=== PATIENT | female | born 1950 | race Caucasian/White ===

== ENCOUNTER 2016-12-03 13:02 | Inpatient (IN) | payer MEDICARE ==
[2016-12-03] VITALS (7 sets, daily range): BP systolic 105–159; BP diastolic 49–81
[~2016-12-03] VITALS: Ht 157.5 cm; Wt 95.7 kg
[~2016-12-03 13:02] MED LIST: ACETAMINOPHEN &1 TA1 PO; ACTOS30 MG PO; ALDACTONE25 MG NG; ALPRAZOLAM0.25 MG PO; APAP PO; ASPIR 8181 MG PO; ATENOLOL50 MG PO; BRILINTA90 M1 PO; BUPROPION HCL75 MG PO; BUSPIRONE HCL15 MG PO; BUSPIRONE15 MG PO; BUTALB PO; CAF PO; CARVEDILOL 25MG25 MG PO; CITALOPRAM10 MG PO; CLOPIDOGREL75 M1 PO; COUMADIN5 M1 PO; DICLOFENAC 50MG50 MG OR; ENOXAPARIN100 MG/M1 SC; FIORICET 325 MG1 TAB; FLEXERIL10 MG PO; FUROSEMIDE 40MG40 M1 PO; GABAPENTIN300 MG PO; GLIPIZIDE 5MG TA5 MG; GLIPIZIDE10 MG PO; HUMULIN 70100 UNITS/ SC; HYDROCODONE/ACE1 TA5 PO; ISOSORBIDE MONO30 MG PO; LASIX 40MG. TAB40 MG PO; LEVAQUIN500 MG PO; LIPITOR80 MG PO; LISINOPRIL 10MG10 MG PO; LISINOPRIL 20MG20 MG PO; LISINOPRIL10 MG PO; LISINOPRIL40 MG PO; LORTAB 5/500 501 TAB PO; LORTAB 500 MG-11 TAB PO; LOVASTATIN20 MG PO; METFORMIN500 MG PO; MOBIC7.5 MG PO; NITROGLYCERIN0.4 MG SL; NORCO 325 MG-101 TAB PO; OMEPRAZOLE40 MG PO; PERCOCET 325 MG1 TA3 PO; PLAVIX75 M1 PO; SPIRONOLACTONE25 MG NG; SPIRONOLACTONE25 MG PO; VICODIN 5/500 T1 TAB PO; ZITHROMAX Z PA250 MG PO
--- OUTSIDE RECORDS SUMMARY | 2016-12-03 13:19 | External Medical Summary Rpt ---
Author Author , HAM CHEEK Address Unknown Phone [email or web address] Purpose Continuity of Care Document - 10-17-2016 through 2016 Problems Code Diagnosis DOS Provider Status E11.9 TYPE 2 DIABETES MELLITUS WITHOUT COMPLICATIO NS E87.5 HYPERKALEMI A I21.4 NON-ST ELEVATION (NSTEMI) MYOCARDIAL INFARCTION I25.10 ATHSCL HEART DISEASE OF [place] CORONARY ARTERY W/O ANG PCTRS I26.99 OTHER PULMONARY EMBOLISM WITHOUT ACUTE COR PULMONALE I50.9 HEART FAILURE, UNSPECIFIED J18.9 PNEUMONIA, UNSPECIFIED ORGANISM M19.90 UNSPECIFIED OSTEOARTHRI TIS, UNSPECIFIED SITE N28.9 DISORDER OF KIDNEY AND URETER, UNSPECIFIED N39.0 URINARY TRACT INFECTION, SITE NOT SPECIFIED R07.9 CHEST PAIN, UNSPECIFIED R73.9 HYPERGLYCEM IA, UNSPECIFIED R79.1 ABNORMAL COAGULATION PROFILE S02.2XXA FRACTURE OF NASAL BONES, INIT ENCNTR FOR CLOSED FRACTURE W19.XXXA UNSPECIFIED FALL, INITIAL ENCOUNTER Results Labs Lab Lab Date Result Refere Interp Status Commen Order Detail nces retati t Range on Drugs identified in Urine by Screen method (11-27-2016 10:19) Ampheta NEGATIV <1000 complet mine 017 E ed [Presen 10:19 ce] in Urine by Screen method 11-Hydr NEGATIV <50 complet oxy 017 E ed delta-9 10:19 tetrahy drocann abinol [Presen ce] in Unspeci fied specime n Gas panel in Arterial blood (10-17-2016 20:43) Arteria Y complet l 017 ed patency 20:43 Wrist artery --pre arteria l punctur e SOURCE R/R complet 017 ed 20:43 Urinalysis dipstick W Reflex Microscopic panel in Urine (10-17-2016 19:15) Bacteri 2+ O complet a 017 ed [Presen 19:15 ce] in Urine sedimen t by Light microsc opy Mucus 10-17-2 OCC OCC complet [Presen 017 ed ce] in 19:15 Urine sedimen t by Light microsc opy Epithel 10-17-2 20-50 0#/hp complet ial 017 f - ed cells.s 19:15 5#/hp quamous f [Presen ce] in Urine sedimen t by Microsc opy high power field Leukocy 10-17- 50-100 O complet maria esther 017 wbc/hpf ed [#/volu 19:15 me] in Urine Urinalysis dipstick W Reflex Microscopic panel in Urine (10-17-2016 19:15) Appeara 10-17- CLEAR CLEAR complet nce of 017 ed Urine 19:15 Bilirub 10-17-2 1+ NEG Abnorma complet in 017 l ed [Presen 19:15 ce] in Urine by Test strip Erythro 1+ NEG Abnorma complet cytes 017 l ed [Presen 19:15 ce] in Urine Color 10-17- YELLOW YELLOW complet of 017 ed Urine 19:15 Ketones 10-17-2 1+ NEG Abnorma complet 017 l ed [Presen 19:15 ce] in Urine by Automat ed test strip Mucus 10-17-2 1+ NEG Abnorma complet [Presen 017 l ed ce] in 19:15 Urine sedimen t by Light microsc opy Nitrite 10-17-2 POSITIV NEG Abnorma complet 017 E l ed [Presen 19:15 ce] in Urine by Test strip Urobili 10-17-2 0.2 NEG complet nogen 017 ed [Presen 19:15 ce] in Urine by Test strip Ketones [Presence] in Urine by Automated test strip (10-17-2016 19:15) Ketones -23-2 MODERAT NEGATIV complet 017 E(40mg/ E ed [Presen 19:15 dl) ce] in Urine by Automat ed test strip
--- OUTSIDE RECORDS SUMMARY | 2016-12-03 13:19 | External Medical Summary Rpt ---
Demographics Preferred Language [place] Marital Status Unknown Jainism Affiliation Unknown Race Unknown Ethnic Group Unknown Author Author HAM Address Unknown Phone Immunization No patient found.
--- OUTSIDE RECORDS SUMMARY | 2016-12-03 13:19 | External Medical Summary Rpt ---
Demographics Preferred Language Citizen Of [place] Marital Status Unknown Yazdanism Affiliation Unknown Race Unknown Ethnic Group Unknown Author Author HAM Address Unknown Phone Immunization No patient found.
--- OUTSIDE RECORDS SUMMARY | 2016-12-03 13:19 | External Medical Summary Rpt ---
Author Author , HAM CHEEK Address Unknown Phone [email or web address] Purpose Continuity of Care Document - 10-17-2016 through 2016 Problems Code Diagnosis DOS Provider Status E11.9 TYPE 2 DIABETES MELLITUS WITHOUT COMPLICATIO NS E87.5 HYPERKALEMI A I21.4 NON-ST ELEVATION (NSTEMI) MYOCARDIAL INFARCTION I25.10 ATHSCL HEART DISEASE OF [place] CORONARY ARTERY W/O ANG PCTRS I26.99 OTHER [...]
--- OUTSIDE RECORDS SUMMARY | 2016-12-03 13:20 | External Medical Summary Rpt ---
Author Author [facility], [employer] Organization [facility] [employer] Address Unknown Phone Unavailable Results Potassium [Moles/volume] in Serum or Plasma Observa Value Referen Units Interpr Notes Date tion ce etation Range Potassium 3.5 - 5.1 mmoL/L High No Nov 30 informati 2017 8:25 [Moles/vo on in AM lume] in source Serum or data Plasma Comprehensive metabolic 2000 panel in Serum or Plasma Observa Value Referen Units Interpr Notes Date tion ce etation Range Albumin/G 1.1 - 1.8 No Low No Nov 30 lobulin informati informati 2017 6:35 [Mass on in on in AM ratio] in source source Serum or data data Plasma Albumin 3.4 - 5.0 gm/dL Low No Nov 30 [Mass/vol informati 2017 6:35 ume] in on in AM Serum or source Plasma data Alkaline 46 - 116 U/L High No Nov 30 phosphata informati 2017 6:35 se on in AM [Enzymati source c data activity/ volume] in Serum or Plasma Bilirubin 0.2 - 1.0 mg/dL Normal No Nov 30 .total informati 2017 6:35 [Mass/vol on in AM ume] in source Serum or data Plasma Urea 7 - 18 mg/dL High No Nov 30 nitrogen informati 2017 6:35 [Mass/vol on in AM ume] in source Serum or data Plasma Calcium 8.5 - mg/dL Normal No Nov 30 [Mass/vol 10.1 informati 2017 6:35 ume] in on in AM Serum or source Plasma data Chloride 98 - 107 mmoL/L Low No Nov 30 [Moles/vo informati 2017 6:35 lume] in on in AM Serum or source Plasma data Carbon 21.0 - mmoL/L Normal No Nov 30 dioxide, 32.0 informati 2017 6:35 total on in AM [Moles/vo source lume] in data Serum or Plasma Creatinin 0.55 - mg/dL High No Nov 30 e 1.02 informati 2017 6:35 [Mass/vol on in AM ume] in source Serum or data Plasma Creatinin 50 - 200 ML/MIN Low No Nov 30 e renal informati 2016 6:35 clearance on in AM source predicted data by Cockcroft -Gault formula Estimated 59- ML/MIN Low REFERENCE Nov 30 RANGE: 2017 6:35 glomerula >60 AM r ML/MIN/1. filtratio 73 SQUARE n rate METERSIf (GF this patient is -A merican, then multiply theresult by 1.210. Globulin 1.3 - 3.2 gm/dL High No Nov 30 [Mass/vol informati 2017 6:35 ume] in on in AM Serum source data Glucose 74 - 106 mg/dL High Nov 30 [Mass/vol alert 2016 6:35 ume] in CRITICAL AM Serum or RESULTS Plasma RESU LTS CALLED TO: DORON 11/30/16 0658 Raghu Arora e Potassium 3.5 - 5.1 mmoL/L High No Nov 30 informati 2016 6:35 [Moles/vo on in AM lume] in source Serum or data Plasma Sodium 136 - 145 mmoL/L Low No Nov 30 [Moles/vo informati 2016 6:35 lume] in on in AM Serum or source Plasma data Aspartate 15 - 37 U/L Normal No Nov 30 informati 2016 6:35 aminotran on in AM sferase source [Enzymati data c activity/ volume] in Serum or Plasma Alanine 12 - 78 U/L Normal No Nov 30 aminotran informati 2016 6:35 sferase on in AM [Enzymati source c data activity/ volume] in Serum or Plasma Protein 6.4 - 8.2 gm/dL Normal No Nov 30 [Mass/vol informati 2016 6:35 ume] in on in AM Serum or source Plasma data INR in Blood by Coagulation assay Observa Value Referen Units Interpr Notes Date tion ce etation Range IS PATIENT ON ANTICOAGULANTS? Y LIST ANTICOAGULANTS: COUMADIN INR in 0.9 - 1.1 No High INDICATIO Nov 30 Blood by informati N 2017 6:00 Coagulati on in AM on assay source INR data RANGETHER APY FOR DVT, PE, ATRIAL FIB; 2.0 - 3.0PROPHY LAXIS FOR VTETHERAP Y FOR MECHANICA L HEART 2.5 - 3.5VALVE; PREVENTIO N OF SYSTEMICE MBOLISM SECONDARY TO AMI Prothromb 9.4 - SECONDS High No Nov 30 in time 11.8 2016 6:00 (PT) in on in AM Platelet source poor data plasma by Coagulati on assay Cardiac enzymes Observa Value Referen Units Interpr Notes Date tion ce etation Range Creatine 0 - 4.0 U/L Normal No Nov 30 kinase.MB informati 2016 6:00 /Creatine on in AM source kinase.to data alexia [Ratio] in Serum or Plasma Creatine 0.0 - 3.6 ng/mL Normal No Nov 30 kinase.MB informati 2016 6:00 on in AM [Mass/vol source ume] in data Serum or Plasma Creatine 26 - 192 U/L Normal No Nov 30 kinase 2016 6:00 [Enzymati on in AM c source activity/ data volume] in Serum or Plasma Troponin 0.00 - ng/mL Normal No Nov 30 I.cardiac 0.06 ati 2016 6:00 on in AM [Mass/vol source ume] in data Serum or Plasma Activated partial thrombplastin time (aPTT) in Platelet poor plasma by Coagulation assay Observa Value Referen Units Interpr Notes ti ce etation Range Activated 23.6 - SECONDS Normal No Nov 30 partial 34.0 2016 6:00 thrombpla on in AM stin time source (aPTT) data in Platelet poor plasma by Coagulati on assay CBC W Auto Differential panel in Blood Observa Value Referen Units Interpr Notes Date ti ce etation Range Basophils 0 - 0.2 K/MM3 Normal No Nov 302016 6:00 [#/volume on in AM ] in source Blood by data Automated count Basophils 0.1 - 2.0 % Normal No Nov 30 /100 informati 2016 6:00 leukocyte on in AM s in source Blood by data Automated count Eosinophi 0.0 - 0.4 K/mm3 Normal No Nov 30 ls ati 2016 6:00 [#/volume on in AM ] in source Blood by data Automated count Eosinophi 0.1 - % Normal No Nov 30 ls/100 12.0 informati 2016 6:00 leukocyte on in AM s in source Blood by data Automated count Granulocy 1.8 - 7.8 K/mm3 Normal No Nov 30 maria esther informati 2017 6:00 [#/volume on in AM ] in source Blood by data Automated count Granulocy 37.0 - % Normal No Nov 30 maria esther/100 80.0 informati 2016 6:00 leukocyte on in AM s in source Blood by data Automated count Hematocri 37.0 - % Normal No Nov 30 t [Volume 47.0 informati 2016 6:00 on in AM Fraction] source of Blood data Hemoglobi 12.2 - g/dL Low No Nov 30 n 16.2 informati 2017 6:00 [Mass/vol on in AM ume] in source Blood data Lymphocyt 0.7 - 4.5 K/mm3 Normal No Nov 30 es informati 2016 6:00 [#/volume on in AM ] in source Unspecifi data ed specimen by Automated count Lymphocyt 10 - 50.0 % Normal No Nov 30 es informati 2016 6:00 [#/volume on in AM ] in source Unspecifi data ed specimen by Automated count Erythrocy 27 - 31.2 pg Normal No Nov 30 te mean informati 2016 6:00 corpuscul on in AM ar source hemoglobi data n [Entitic mass] Erythrocy 31.8 - g/dl Low No Nov 30 te mean 35.4 informati 2016 6:00 corpuscul on in AM ar source hemoglobi data n concentra tion [Mass/vol ume] by Automated count Erythrocy 82.2 - fl High No Nov 30 te mean 97.8 informati 2016 6:00 corpuscul on in AM ar volume source [Entitic data volume] by Automated count Monocytes 0.1 - 1.0 K/mm3 Normal No Nov 30 informati 2017 6:00 [#/volume on in AM ] in source Blood by data Automated count Monocytes 1.7 - 9.3 % Normal No Nov 30 informati 2017 6:00 leukocyte on in AM s in source Blood by data Automated count Platelet 7.4 - fl Normal No Nov 30 mean 10.4 informati 2017 6:00 volume on in AM [Entitic source volume] data in Blood by Automated count Platelets 142 - 424 K/mm3 No No Nov 30 informati informati 2017 6:00 [#/volume on in on in AM ] in source source Blood data data Erythrocy 4.2 - 5.4 M/mm3 Low No Nov 30 maria esther informati 2016 6:00 [#/volume on in AM ] in source Amniotic data fluid Erythrocy 11.5 - % Normal No Nov 30 te 17.5 informati 2016 6:00 distribut on in AM ion width source [Entitic data volume] by Automated count Leukocyte 4.8 - K/MM3 Normal No Nov 30 s 10.8 informati 2016 6:00 [#/volume on in AM ] in source Blood data Opiates and Oxycodone(GC/MS),U Observa Value Referen Units Interpr Notes Date tion ce etation Range Oxycodo Negativ Cutoff= No No Test Nov 27 ne/Oxym e 100 informa informa include 2017 orph tion in tion in s 10:19 source source Oxycodo AM data data ne and Oxymorp honePer formed at: [facility] [id number] [place], [place] [id number]Lab Directo r: Johnny Mosquera MD, Phone: [phone] Opiates Negativ Cutoff= No No Opiate Nov 27 e 100 informa informa test 2017 tion in tion in include 10:19 source source s AM data data Codeine , Morphin e, Hydromo rphone, Hydroco done. Drugs identified in Urine by Screen method Observa Value Referen Units Interpr Notes Date tion ce etation Range Positive urine drug screen samples are stored for 7 days. Contact the Lab if confirmation of positives is needed. Ampheta NEGATIV <1000 ng/mL No No Nov 27 mine E informa informa 2016 [Presen tion in tion in 10:19 ce] in source source AM Urine data data by Screen method Barbitura <200 ng/mL No No Nov 27 maria esther informati informati 2016 [Mass/vol on in on in 10:19 AM ume] in source source Urine by data data Screen method Benzodiaz 200 ng/mL ng/mL No No Nov 27 epines informati informati 2016 [Mass/vol on in on in 10:19 AM ume] in source source Serum or data data Plasma by Screen method Cocaine <300 ng/g No No Nov 27 [Mass/vol informati informati 2016 ume] in on in on in 10:19 AM Unspecifi source source ed data data specimen Methadone <300 ng/mL No No Nov 27 informati informati 2016 [Mass/vol on in on in 10:19 AM ume] in source source Unspecifi data data ed specimen Opiates <300 ng/mL No No Nov 27 [Mass/vol informati informati 2016 ume] in on in on in 10:19 AM Unspecifi source source ed data data specimen Phencycli <25 ng/mL No No Nov 27 dine informati informati 2016 [Mass/vol on in on in 10:19 AM ume] in source source Unspecifi data data ed specimen 11-Hydr NEGATIV <50 ng/mL No No Nov 27 oxy E informa informa 2017 delta-9 tion in tion in 10:19 source source AM tetrahy data data drocann abinol [Presen ce] in Unspeci fied specime n INR in Blood by Coagulation assay Observa Value Referen Units Interpr Notes Date tion ce etation Range INR in 0.9 - 1.1 No High Results Nov 16 Blood by informati sent to: 2016 3:30 Coagulati on in [facility] on assay source Ekta HIGH 11/16/16 [id number] enship,Ji mmy Pharmacis t recommend ation for Warfarint herapy is: PATIENT INR 1.7 TODAY VIA FINGERSTI CK.RECOMM ENDED PATIENT INCREASE THE DOSE OF WARFARIN BY 2 MGWEEKLY TO 3 MG ON MON/FRI; 2 MG ON SUN/SUN/ ED/MAYCOL/SA T.WILL FOLLOW UP IN 2 WEEKS. *FOR DETAILED INFORMATI ON-PLEASE REVIEW PROGRESS NOTEI N THE ASSESSMEN TS AND ANTICOAGU LATION CLINIC SECTIONAN TICOAGULA TION CLINIC IN PCI/CLINI SONU REVIEWIND ICATION INR RANGETHER APY FOR DVT, PE, ATRIAL FIB; 2.0 - 3.0PROPHY LAXIS FOR VTETHERAP Y FOR MECHANICA L HEART 2.5 - 3.5VALVE; PREVENTIO N OF SYSTEMICE MBOLISM SECONDARY TO AMI INR in Blood by Coagulation assay Observa Value Referen Units Interpr Notes Date tion ce etation Range INR in 0.9 - 1.1 No High Results Nov 10 Blood by informati sent to: 2016 3:30 Coagulati on in [facility] PM on assay source Ekta HIGH 11/10/16 [id number] enship,Ji mmy Pharmacis t recommend ation for Warfarint herapy is: PATIENT INR 2.0 TODAY VIA FINGERSTI CK. PATIENTHA S HAD 2 DOSES OF WARFARIN 5 MG SINCE SUNDAY .RECOMMEN DED PATIENT STOP THE WARFARIN 5 MG DAILY AND STARTWARF DAVID 2 MG DAILY. INR IS THERAPEUT IC SO LOVENOX IS NOLONGER INDICATED . WILL FOLLOW UP ON SUNDAY. FOR DETAILED INFORMATI ON-PLEASE REVIEW PROGRESS NOTEI N THE ASSESSMEN TS AND ANTICOAGU LATION CLINIC SECTIONAN TICOAGULA TION CLINIC IN PCI/CLINI SONU REVIEWIND ICATION INR RANGETHER APY FOR DVT, PE, ATRIAL FIB; 2.0 - 3.0PROPHY LAXIS FOR VTETHERAP Y FOR MECHANICA L HEART 2.5 - 3.5VALVE; PREVENTIO N OF SYSTEMICE MBOLISM SECONDARY TO AMI Glucose [Mass/volume] in Capillary blood by Glucometer Observa Value Referen Units Interpr Notes Date tion ce etation Range Glucose 70 - 110 mg/dl High No Oct 15 [Mass/vol informati 2017 ume] in on in 12:02 PM Capillary source blood by data Glucomete r Glucose [Mass/volume] in Capillary blood by Glucometer Observa Value Referen Units Interpr Notes Date tion ce etation Range Glucose 70 - 110 mg/dl High No Oct 15 [Mass/vol informati 2017 6:19 ume] in on in AM Capillary source blood by data Glucomete r Glucose [Mass/volume] in Capillary blood by Glucometer Observa Value Referen Units Interpr Notes Date tion ce etation Range Glucose 70 - 110 mg/dl High No Oct 14 [Mass/vol alert informati 2017 9:26 ume] in on in PM Capillary source blood by data Glucomete r Glucose [Mass/volume] in Capillary blood by Glucometer Observa Value Referen Units Interpr Notes Date tion ce etation Range Glucose 70 - 110 mg/dl High No Nov 08 [Mass/vol alert informati 2017 5:02 ume] in on in PM Capillary source blood by data Glucomete r Glucose [Mass/volume] in Capillary blood by Glucometer Observa Value Referen Units Interpr Notes Date tion ce etation Range Glucose 70 - 110 mg/dl High No Oct 14 [Mass/vol alert informati 2017 ume] in on in 11:54 AM Capillary source blood by data Glucomete r Glucose [Mass/volume] in Capillary blood by Glucometer Observa Value Referen Units Interpr Notes Date tion ce etation Range Glucose 70 - 110 mg/dl High No Oct 14 [Mass/vol alert informati 2017 6:36 ume] in on in AM Capillary source blood by data Glucomete r Basic metabolic panel in Blood Observa Value Referen Units Interpr Notes Date tion ce etation Range Urea 7 - 18 mg/dL High No Oct 14 nitrogen informati 2017 6:30 [Mass/vol on in AM ume] in source Serum or data Plasma Calcium 8.5 - mg/dL Normal No Oct 14 [Mass/vol 10.1 informati 2017 6:30 ume] in on in AM Serum or source Plasma data Chloride 98 - 107 mmoL/L Low No Oct 14 [Moles/vo informati 2016 6:30 lume] in on in AM Serum or source Plasma data Carbon 21.0 - mmoL/L Normal No Nov 08 dioxide, 32.0 informati 2017 6:30 total on in AM [Moles/vo source lume] in data Serum or Plasma Creatinin 0.55 - mg/dL High No Oct 14 e 1.02 informati 2017 6:30 [Mass/vol on in AM ume] in source Serum or data Plasma Creatinin 50 - 200 ML/MIN No No Oct 14 e renal informati informati 2017 6:30 clearance on in on in AM source source predicted data data by Cockcroft -Gault formula Estimated 59- ML/MIN Low REFERENCE Nov 08 RANGE: 2017 6:30 glomerula >60 AM r ML/MIN/1. filtratio 73 SQUARE n rate METERSIf (GF this patient is -A merican, then multiply theresult by 1.210. Glucose 74 - 106 mg/dL High No Oct 14 [Mass/vol informati 2017 6:30 ume] in on in AM Serum or source Plasma data Potassium 3.5 - 5.1 mmoL/L Normal No Oct 14 informati 2017 6:30 [Moles/vo on in AM lume] in source Serum or data Plasma Sodium 136 - 145 mmoL/L Low No Oct 14 [Moles/vo informati 2016 6:30 lume] in on in AM Serum or source Plasma data CBC W Auto Differential panel in Blood Observa Value Referen Units Interpr Notes Date tion ce etation Range Basophils 0 - 0.2 K/MM3 Normal No Oct 14 informati 2016 6:30 [#/volume on in AM ] in source Blood by data Automated count Basophils 0.1 - 2.0 % Normal No Oct 14 /100 informati 2017 6:30 leukocyte on in AM s in source Blood by data Automated count Eosinophi 0.0 - 0.4 K/mm3 Normal No Oct 14 ls informati 2017 6:30 [#/volume on in AM ] in source Blood by data Automated count Eosinophi 0.1 - % Normal No Oct 14 ls/100 12.0 informati 2017 6:30 leukocyte on in AM s in source Blood by data Automated count Granulocy 1.8 - 7.8 K/mm3 Normal No Oct 14 maria esther informati 2017 6:30 [#/volume on in AM ] in source Blood by data Automated count Granulocy 37.0 - % Normal No Oct 14 maria esther/100 80.0 informati 2016 6:30 leukocyte on in AM s in source Blood by data Automated count Hematocri 37.0 - % Low No Oct 14 t [Volume 47.0 informati 2017 6:30 on in AM Fraction] source of Blood data Hemoglobi 12.2 - g/dL Low No Nov 08 n 16.2 informati 2017 6:30 [Mass/vol on in AM ume] in source Blood data Lymphocyt 0.7 - 4.5 K/mm3 Normal No Oct 14 es informati 2017 6:30 [#/volume on in AM ] in source Unspecifi data ed specimen by Automated count Lymphocyt 10 - 50.0 % Normal No Oct 14 es informati 2017 6:30 [#/volume on in AM ] in source Unspecifi data ed specimen by Automated count Erythrocy 27 - 31.2 pg Normal No Oct 14 te mean informati 2017 6:30 corpuscul on in AM ar source hemoglobi data n [Entitic mass] Erythrocy 31.8 - g/dl Low No Oct 14 te mean 35.4 informati 2017 6:30 corpuscul on in AM ar source hemoglobi data n concentra tion [Mass/vol ume] by Automated count Erythrocy 82.2 - fl Normal No Oct 14 te mean 97.8 inform2016 6:30 corpuscul on in AM ar volume source [Entitic data volume] by Automated count Monocytes 0.1 - 1.0 K/mm3 Normal No Oct 14 inform2016 6:30 [#/volume on in AM ] in source Blood by data Automated count Monocytes 1.7 - 9.3 % High No Oct 14 /100 informati 2016 6:30 leukocyte on in AM s in source Blood by data Automated count Platelet 7.4 - fl Normal No Oct 14 mean 10.4 informati 2016 6:30 volume on in AM [Entitic source volume] data in Blood by Automated count Platelets 142 - 424 K/mm3 Normal No Oct 14 informati 2016 6:30 [#/volume on in AM ] in source Blood data Erythrocy 4.2 - 5.4 M/mm3 Low No Oct 14 maria esther informati 2016 6:30 [#/volume on in AM ] in source Amniotic data fluid Erythrocy 11.5 - % Normal No Oct 14 te 17.5 informati 2016 6:30 distribut on in AM ion width source [Entitic data volume] by Automated count Leukocyte 4.8 - K/MM3 Normal No Oct 14 s 10.8 informati 2016 6:30 [#/volume on in AM ] in source Blood data CBC W Auto Differential panel in Blood Observa Value Referen Units Interpr Notes Date tion ce etation Range Basophils 0 - 0.2 K/MM3 Normal No Oct 13 2016 [#/volume on in 12:25 PM ] in source Blood by data Automated count Basophils 0.1 - 2.0 % Normal No Nov 07 / inform2016 leukocyte on in 12:25 PM s in source Blood by data Automated count Eosinophi 0.0 - 0.4 K/mm3 Normal No Oct 13 ls inform2016 [#/volume on in 12:25 PM ] in source Blood by data Automated count Eosinophi 0.1 - % Normal No Nov 07 ls/100 12.0 inform2016 leukocyte on in 12:25 PM s in source Blood by data Automated count Granulocy 1.8 - 7.8 K/mm3 Normal No Nov 07 maria esther informati 2016 [#/volume on in 12:25 PM ] in source Blood by data Automated count Granulocy 37.0 - % Normal No Nov 07 maria esther/100 80.0 inform2016 leukocyte on in 12:25 PM s in source Blood by data Automated count Hematocri 37.0 - % Normal No Nov 07 t [Volume 47.0 informati 2016 on in 12:25 PM Fraction] source of Blood data Hemoglobi 12.2 - g/dL Normal No Nov 07 n 16.2 inform2016 [Mass/vol on in 12:25 PM ume] in source Blood data Lymphocyt 0.7 - 4.5 K/mm3 Normal No Nov 07 es 2016 [#/volume on in 12:25 PM ] in source Unspecifi data ed specimen by Automated count Lymphocyt 10 - 50.0 % Normal No Nov 07 es inform2016 [#/volume on in 12:25 PM ] in source Unspecifi data ed specimen by Automated count Erythrocy 27 - 31.2 pg High No Nov 07 te mean 2016 corpuscul on in 12:25 PM ar source hemoglobi data n [Entitic mass] Erythrocy 31.8 - g/dl Normal No Nov 07 te mean 35.4 2016 corpuscul on in 12:25 PM ar source hemoglobi data n concentra tion [Mass/vol ume] by Automated count Erythrocy 82.2 - fl Normal No Nov 07 te mean 97.8 2016 corpuscul on in 12:25 PM ar volume source [Entitic data volume] by Automated count Monocytes 0.1 - 1.0 K/mm3 Normal No Nov 072016 [#/volume on in 12:25 PM ] in source Blood by data Automated count Monocytes 1.7 - 9.3 % High No Nov 07 /100 2016 leukocyte on in 12:25 PM s in source Blood by data Automated count Platelet 7.4 - fl Normal No Nov 07 mean 10.4 2016 volume on in 12:25 PM [Entitic source volume] data in Blood by Automated count Platelets 142 - 424 K/mm3 Normal No Nov 072016 [#/volume on in 12:25 PM ] in source Blood data Erythrocy 4.2 - 5.4 M/mm3 Low No Nov 07 maria esther informati 2016 [#/volume on in 12:25 PM ] in source Amniotic data fluid Erythrocy 11.5 - % Normal No Nov 07 te 17.5 2016 distribut on in 12:25 PM ion width source [Entitic data volume] by Automated count Leukocyte 4.8 - K/MM3 Normal No Nov 07 s 10.8 informati 2016 [#/volume on in 12:25 PM ] in source Blood data Fibrin D-dimer FEU [Mass/volume] in Platelet poor plasma Observa Value Referen Units Interpr Notes Date tion ce etation Range Fibrin 0 - 400 ng/mL High Nov 07 D-dimer alert NOTIFICAT 2017 FEU ION 11:25 AM [Mass/vol RESULT ume] in The Platelet D-Dimer poor values plasma are presented in units of mass(ng/m L) ofD-Dimer units(DDU ).This test has been FDA approved as an aid in the assessmen tand evaluatio n of suspected DIC, and thromboem bolic eventsinc luding PE and DVT. However, it does not have approvalf or cut-off values for the exclusion of these condition s. Basic metabolic panel in Blood Observa Value Referen Units Interpr Notes Date ti ce etation Range Urea 7 - 18 mg/dL High No October 20 nitrogen informati 2016 8:20 [Mass/vol on in AM ume] in source Serum or data Plasma Calcium 8.5 - mg/dL Normal No October 20 [Mass/vol 10.1 informati 2016 8:20 ume] in on in AM Serum or source Plasma data Chloride 98 - 107 mmoL/L Low No October 20 [Moles/vo informati 2016 8:20 lume] in on in AM Serum or source Plasma data Carbon 21.0 - mmoL/L Normal No October 20 dioxide, 32.0 informati 2016 8:20 total on in AM [Moles/vo source lume] in data Serum or Plasma Creatinin 0.55 - mg/dL High No October 20 e 1.02 informati 2016 8:20 [Mass/vol on in AM ume] in source Serum or data Plasma Creatinin 50 - 200 ML/MIN Normal No October 20 e renal informati 2016 8:20 clearance on in AM source predicted data by Cockcroft -Gault formula Estimated 59- ML/MIN Low REFERENCE October 20 RANGE: 2016 8:20 glomerula >60 AM r ML/MIN/1. filtratio 73 SQUARE n rate METERSIf (GF this patient is -A merican, then multiply theresult by 1.210. Glucose 74 - 106 mg/dL High No October 20 [Mass/vol informati 2016 8:20 ume] in on in AM Serum or source Plasma data Potassium 3.5 - 5.1 mmoL/L Normal No October 20 informati 2016 8:20 [Moles/vo on in AM lume] in source Serum or data Plasma Sodium 136 - 145 mmoL/L Low No October 20 [Moles/vo informati 2016 8:20 lume] in on in AM Serum or source Plasma data Glucose [Mass/volume] in Capillary blood by Glucometer Observa Value Referen Units Interpr Notes Date ti ce etation Range Glucose 70 - 110 mg/dl High No October 20 [Mass/vol informati 2016 6:26 ume] in on in AM Capillary source blood by data Glucomete r Glucose [Mass/volume] in Capillary blood by Glucometer Observa Value Referen Units Interpr Notes Date ti etation Range Glucose 70 - 110 mg/dl High No October 19 [Mass/vol informati 2016 8:42 ume] in on in PM Capillary source blood by data Glucomete r Glucose [Mass/volume] in Capillary blood by Glucometer Observa Value Referen Units Interpr Notes Date ti etation Range Glucose 70 - 110 mg/dl High No October 19 [Mass/vol alert informati 2016 4:56 ume] in on in PM Capillary source blood by data Glucomete r Glucose [Mass/volume] in Capillary blood by Glucometer Observa Value Referen Units Interpr Notes Date ti ce etation Range Glucose 70 - 110 mg/dl High No October 19 [Mass/vol alert informati 2016 ume] in on in 11:49 AM Capillary source blood by data Glucomete r Glucose [Mass/volume] in Capillary blood by Glucometer Observa Value Referen Units Interpr Notes Date ti ce etation Range Glucose 70 - 110 mg/dl High No October 19 [Mass/vol alert informati 2016 6:53 ume] in on in AM Capillary source blood by data Glucomete r Glucose [Mass/volume] in Capillary blood by Glucometer Observa Value Referen Units Interpr Notes Date ti ce etation Range Glucose 70 - 110 mg/dl High No October 18 [Mass/vol alert informati 2016 8:39 ume] in on in PM Capillary source blood by data Glucomete r Glucose [Mass/volume] in Capillary blood by Glucometer Observa Value Referen Units Interpr Notes Date tion ce etation Range Glucose 70 - 110 mg/dl High No October 18 [Mass/vol alert informati 2016 4:45 ume] in on in PM Capillary source blood by data Glucomete r Glucose [Mass/volume] in Capillary blood by Glucometer Observa Value Referen Units Interpr Notes Date tion ce etation Range Glucose 70 - 110 mg/dl High No October 18 [Mass/vol alert informati 2016 ume] in on in 11:39 AM Capillary source blood by data Glucomete r Glucose [Mass/volume] in Capillary blood by Glucometer Observa Value Referen Units Interpr Notes Date ti ce etation Range Glucose 70 - 110 mg/dl High No October 18 [Mass/vol alert informati 2016 7:29 ume] in on in AM Capillary source blood by data Glucomete r Glucose [Mass/volume] in Capillary blood by Glucometer Observa Value Referen Units Interpr Notes Date ti ce etation Range Glucose 70 - 110 mg/dl High No October 18 [Mass/vol alert informati 2016 6:08 ume] in on in AM Capillary source blood by data Glucomete r Cardiac enzymes Observa Value Referen Units Interpr Notes Date ti ce etation Range Creatine 0 - 4.0 U/L Normal No October 18 kinase.MB informati 2016 4:30 /Creatine on in AM source kinase.to data alexia [Ratio] in Serum or Plasma Creatine 0.0 - 3.6 ng/mL Normal No October 18 kinase.MB informati 2016 4:30 on in AM [Mass/vol source ume] in data Serum or Plasma Creatine 26 - 192 U/L Normal No October 18 kinase informati 2017 4:30 [Enzymati on in AM c source activity/ data volume] in Serum or Plasma Troponin 0.00 - ng/mL Normal No October 18 I.cardiac 0.06 informati 2016 4:30 on in AM [Mass/vol source ume] in data Serum or Plasma Basic metabolic panel in Blood Observa Value Referen Units Interpr Notes Date ti ce etation Range Urea 7 - 18 mg/dL High No October 18 nitrogen informati 2016 4:30 [Mass/vol on in AM ume] in source Serum or data Plasma Calcium 8.5 - mg/dL Normal No October 18 [Mass/vol 10.1 informati 2016 4:30 ume] in on in AM Serum or source Plasma data Chloride 98 - 107 mmoL/L Low No October 18 [Moles/vo informati 2016 4:30 lume] in on in AM Serum or source Plasma data Carbon 21.0 - mmoL/L Normal No October 18 dioxide, 32.0 informati 2016 4:30 total on in AM [Moles/vo source lume] in data Serum or Plasma Creatinin 0.55 - mg/dL High No October 18 e 1.02 informati 2016 4:30 [Mass/vol on in AM ume] in source Serum or data Plasma Creatinin 50 - 200 ML/MIN Low No October 18 e renal informati 2016 4:30 clearance on in AM source predicted data by Cockcroft -Gault formula Estimated 59- ML/MIN Low REFERENCE October 18 RANGE: 2017 4:30 glomerula >60 AM r ML/MIN/1. filtratio 73 SQUARE n rate METERSIf (GF this patient is -A merican, then multiply theresult by 1.210. Glucose 74 - 106 mg/dL High October 18 [Mass/vol alert 2017 4:30 ume] in CRITICAL AM Serum or RESULTS Plasma RESU LTS CALLED TO: NORIS Booth 10/18/16 0527 Adri Aviles ictilana Potassium 3.5 - 5.1 mmoL/L Normal No October 18 informati 2016 4:30 [Moles/vo on in AM lume] in source Serum or data Plasma Sodium 136 - 145 mmoL/L Low No October 18 [Moles/vo informati 2016 4:30 lume] in on in AM Serum or source Plasma data CBC W Auto Differential panel in Blood Observa Value Referen Units Interpr Notes Date tion ce etation Range Basophils 0 - 0.2 K/MM3 Normal No October 18 informati 2016 4:30 [#/volume on in AM ] in source Blood by data Automated count Basophils 0.1 - 2.0 % Normal No October 18 informati 2016 4:30 leukocyte on in AM s in source Blood by data Automated count Eosinophi 0.0 - 0.4 K/mm3 Normal No October 18 ls informati 2016 4:30 [#/volume on in AM ] in source Blood by data Automated count Eosinophi 0.1 - % Normal No October 18 ls/100 12.0 informati 2016 4:30 leukocyte on in AM s in source Blood by data Automated count Granulocy 1.8 - 7.8 K/mm3 Normal No October 18 maria esther informati 2016 4:30 [#/volume on in AM ] in source Blood by data Automated count Granulocy 37.0 - % Normal No October 18 maria esther/100 80.0 informati 2016 4:30 leukocyte on in AM s in source Blood by data Automated count Hematocri 37.0 - % Normal No October 18 t [Volume 47.0 informati 2016 4:30 on in AM Fraction] source of Blood data Hemoglobi 12.2 - g/dL Normal No October 18 n 16.2 informati 2016 4:30 [Mass/vol on in AM ume] in source Blood data Lymphocyt 0.7 - 4.5 K/mm3 Normal No October 18 es informati 2016 4:30 [#/volume on in AM ] in source Unspecifi data ed specimen by Automated count Lymphocyt 10 - 50.0 % Normal No October 18 es informati 2016 4:30 [#/volume on in AM ] in source Unspecifi data ed specimen by Automated count Erythrocy 27 - 31.2 pg High No October 18 te mean informati 2016 4:30 corpuscul on in AM ar source hemoglobi data n [Entitic mass] Erythrocy 31.8 - g/dl Normal October 18 te mean 35.4 informati 2016 4:30 corpuscul on in AM ar source hemoglobi data n concentra tion [Mass/vol ume] by Automated count Erythrocy 82.2 - fl High October 18 te mean 97.8 informati 2016 4:30 corpuscul on in AM ar volume source [Entitic data volume] by Automated count Monocytes 0.1 - 1.0 K/mm3 Normal No October 18 informati 2016 4:30 [#/volume on in AM ] in source Blood by data Automated count Monocytes 1.7 - 9.3 % Normal No October 18 informati 2016 4:30 leukocyte on in AM s in source Blood by data Automated count Platelet 7.4 - fl Low October 18 mean 10.4 informati 2016 4:30 volume on in AM [Entitic source volume] data in Blood by Automated count Platelets 142 - 424 K/mm3 Normal No October 18 informati 2016 4:30 [#/volume on in AM ] in source Blood data Erythrocy 4.2 - 5.4 M/mm3 Normal No October 18 maria esther informati 2016 4:30 [#/volume on in AM ] in source Amniotic data fluid Erythrocy 11.5 - % Normal No October 18 te 17.5 informati 2016 4:30 distribut on in AM ion width source [Entitic data volume] by Automated count Leukocyte 4.8 - K/MM3 Normal No October 18 s 10.8 informati 2016 4:30 [#/volume on in AM ] in source Blood data Lactate [Moles/volume] in Serum or Plasma Observa Value Referen Units Interpr Notes Date ti ce etation Range Lactate 0.4 - 2.0 MMOL/L High An October 17 [Moles/vo elevated 2017 lume] in Lactic 11:30 PM Serum or Acid is Plasma suggestiv e of sepsis and shouldbe repeated within 6 hours of initial testing. Gas panel in Arterial blood Observa Value Referen Units Interpr Notes Date ti ce etation Range Base -2.4-+2.3 MMOL/L Low No October 17 excess in informati 2016 8:43 Arterial on in PM blood source data Arteria Y No No No No October 17 l informa informa informa informa 2017 patency tion in tion in tion in tion in 8:43 PM Wrist source source source source artery data data data data --pre arteria l punctur e Bicarbona 22.0 - MMOL/L Low No October 17 te 26.0 informati 2016 8:43 [Moles/vo on in PM lume] in source Arterial data blood Oxygen No No No No October 17 content informati informati informati informati 2017 8:43 in on in on in on in on in PM Arterial source source source source blood data data data data Carbon 35.0 - MMHG Normal October 17 dioxide 45.0 informati 2016 8:43 [Partial on in PM pressure] source in data Arterial blood pH of 7.35 - MMOL/L Normal No October 17 Arterial 7.45 informati 2016 8:43 blood on in PM source data Oxygen 80 - 100 MMHG Low No October 17 [Partial informati 2016 8:43 pressure] on in PM in source Arterial data blood Oxygen 90 - 100 % Normal No October 17 saturatio informati 2016 8:43 n.calcula on in PM deloris from source oxygen data partial pressure in Arterial blood SOURCE R/R No No No No October 17 informa informa informa informa 2017 tion in tion in tion in tion in 8:43 PM source source source source data data data data Carbon 23 - 27 MMOL/L Normal No October 17 dioxide, informati 2016 8:43 total on in PM [Moles/vo source lume] in data Arterial blood Acetone [Mass/volume] in Serum or Plasma Observa Value Referen Units Interpr Notes Date ti ce etation Range Acetone NOT No No No October 17 [Mass/vol DETECTD informati informati informati 2016 7:40 ume] in on in on in on in PM Serum or source source source Plasma data data data CBC W Auto Differential panel in Blood Observa Value Referen Units Interpr Notes Date ti ce etation Range Basophils 0 - 0.2 K/MM3 Normal No October 17 informati 2016 7:40 [#/volume on in PM ] in source Blood by data Automated count Basophils 0.1 - 2.0 % Normal No October 17 informati 2016 7:40 leukocyte on in PM s in source Blood by data Automated count Eosinophi 0.0 - 0.4 K/mm3 Normal No October 17 ls informati 2016 7:40 [#/volume on in PM ] in source Blood by data Automated count Eosinophi 0.1 - % Normal No October 17 ls/100 12.0 informati 2016 7:40 leukocyte on in PM s in source Blood by data Automated count Granulocy 1.8 - 7.8 K/mm3 Normal No October 17 maria esther informati 2016 7:40 [#/volume on in PM ] in source Blood by data Automated count Granulocy 37.0 - % Normal No October 17 maria esther/100 80.0 informati 2016 7:40 leukocyte on in PM s in source Blood by data Automated count Hematocri 37.0 - % Normal No October 17 t [Volume 47.0 informati 2016 7:40 on in PM Fraction] source of Blood data Hemoglobi 12.2 - g/dL No October 17 n 16.2 informati informati 2016 7:40 [Mass/vol on in on in PM ume] in source source Blood data data Lymphocyt 0.7 - 4.5 K/mm3 Normal No October 17 es informati 2016 7:40 [#/volume on in PM ] in source Unspecifi data ed specimen by Automated count Lymphocyt 10 - 50.0 % Normal No October 17 es informati 2016 7:40 [#/volume on in PM ] in source Unspecifi data ed specimen by Automated count Erythrocy 27 - 31.2 pg High No October 17 te mean informati 2016 7:40 corpuscul on in PM ar source hemoglobi data n [Entitic mass] Erythrocy 31.8 - g/dl Normal No October 17 te mean 35.4 informati 2016 7:40 corpuscul on in PM ar source hemoglobi data n concentra tion [Mass/vol ume] by Automated count Erythrocy 82.2 - fl High No October 17 te mean 97.8 informati 2016 7:40 corpuscul on in PM ar volume source [Entitic data volume] by Automated count Monocytes 0.1 - 1.0 K/mm3 Normal No October 17 informati 2016 7:40 [#/volume on in PM ] in source Blood by data Automated count Monocytes 1.7 - 9.3 % Normal No October 17 / informati 2016 7:40 leukocyte on in PM s in source Blood by data Automated count Platelet 7.4 - fl Low No October 17 mean 10.4 informati 2016 7:40 volume on in PM [Entitic source volume] data in Blood by Automated count Platelets 142 - 424 K/mm3 Normal No October 17 informati 2016 7:40 [#/volume on in PM ] in source Blood data Erythrocy 4.2 - 5.4 M/mm3 Normal No October 17 maria esther informati 2016 7:40 [#/volume on in PM ] in source Amniotic data fluid Erythrocy 11.5 - % Normal No October 17 te 17.5 informati 2016 7:40 distribut on in PM ion width source [Entitic data volume] by Automated count Leukocyte 4.8 - K/MM3 Normal No October 17 s 10.8 informati 2016 7:40 [#/volume on in PM ] in source Blood data Lactate [Moles/volume] in Blood Observa Value Referen Units Interpr Notes Date tion ce etation Range Lactate 0.4 - 2.0 mmol/L High An October 17 [Moles/vo elevated 2016 7:40 lume] in Lactic PM Blood Acid is suggestiv e of sepsis and shouldbe repeated within 6 hours of initial testing. Urinalysis dipstick W Reflex Microscopic panel in Urine Observa Value Referen Units Interpr Notes Date tion ce etation Range Appeara CLEAR CLEAR No No No October 17 nce of informa informa informa 2016 Urine tion in tion in tion in 7:15 PM source source source data data data Bacteri 2+ O No No No October 17 a informa informa informa 2016 [Presen tion in tion in tion in 7:15 PM ce] in source source source Urine data data data sedimen t by Light microsc opy Bilirub 1+ NEG No Abnorma ICTOTES October 17 in informa l T 2016 [Presen tion in NEGATIV 7:15 PM ce] in source E Urine data by Test strip Erythro 1+ NEG No Abnorma No October 17 cytes informa l informa 2016 [Presen tion in tion in 7:15 PM ce] in source source Urine data data Color YELLOW YELLOW No No No October 17 of informa informa informa 2016 Urine tion in tion in tion in 7:15 PM source source source data data data Glucose NEG No High No October 17 [Mass/vol informati informati 2016 7:15 ume] in on in on in PM Urine by source source Test data data strip Ketones 1+ NEG mg/dL Abnorma No October 17 l informa 2016 [Presen tion in 7:15 PM ce] in source Urine data by Automat ed test strip Mucus 1+ NEG No Abnorma No October 17 [Presen informa l informa 2016 ce] in tion in tion in 7:15 PM Urine source source sedimen data data t by Light microsc opy Mucus OCC OCC No No No October 17 [Presen informa informa informa 2016 ce] in tion in tion in tion in 7:15 PM Urine source source source sedimen data data data t by Light microsc opy Nitrite POSITIV NEG No Abnorma No October 17 E informa l informa 2016 [Presen tion in tion in 7:15 PM ce] in source source Urine data data by Test strip pH of 5.0 - 8.5 No Normal No October 17 Urine informati informati 2017 7:15 on in on in PM source source data data Protein NEG mg/dL No No October 17 [Mass/vol informati informati 2016 7:15 ume] in on in on in PM Urine by source source Automated data data test strip Specific 1.005 - No Normal No October 17 gravity 1.030 informati informati 2016 7:15 of Urine on in on in PM source source data data Epithel 20-50 0 - 5 #/hpf No No October 17 ial informa informa 2016 cells.s tion in tion in 7:15 PM quamous source source data data [Presen ce] in Urine sedimen t by Microsc opy high power field Urobili 0.2 NEG E.U./dL No No October 17 nogen informa informa 2016 [Presen tion in tion in 7:15 PM ce] in source source Urine data data by Test strip Leukocy [50 O wbc/hpf No No October 17 maria esther wbc/hpf informa informa 2016 [#/volu ; 100 tion in tion in 7:15 PM me] in wbc/hpf source source Urine ] data data Urinalysis dipstick W Reflex Microscopic panel in Urine Observa Value Referen Units Interpr Notes Date tion ce etation Range Appeara CLEAR CLEAR No No No October 17 nce of informa informa informa 2016 Urine tion in tion in tion in 7:15 PM source source source data data data Bilirub 1+ NEG No Abnorma ICTOTES October 17 in informa l T 2016 [Presen tion in NEGATIV 7:15 PM ce] in source E Urine data by Test strip Erythro 1+ NEG No Abnorma No October 17 cytes informa l informa 2016 [Presen tion in tion in 7:15 PM ce] in source source Urine data data Color YELLOW YELLOW No No No October 17 of informa informa informa 2017 Urine tion in tion in tion in 7:15 PM source source source data data data Glucose NEG No High No October 17 [Mass/vol informati informati 2016 7:15 ume] in on in on in PM Urine by source source Test data data strip Ketones 1+ NEG mg/dL Abnorma No October 17 l informa 2016 [Presen tion in 7:15 PM ce] in source Urine data by Automat ed test strip Mucus 1+ NEG No Abnorma No October 17 [Presen informa l informa 2016 ce] in tion in tion in 7:15 PM Urine source source sedimen data data t by Light microsc opy Nitrite POSITIV NEG No Abnorma No October 17 E informa l informa 2016 [Presen tion in tion in 7:15 PM ce] in source source Urine data data by Test strip pH of 5.0 - 8.5 No Normal No October 17 Urine informati informati 2016 7:15 on in on in PM source source data data Protein NEG mg/dL No No October 17 [Mass/vol informati informati 2016 7:15 ume] in on in on in PM Urine by source source Automated data data test strip Specific 1.005 - No Normal No October 17 gravity 1.030 informati informati 2016 7:15 of Urine on in on in PM source source data data Urobili 0.2 NEG E.U./dL No No October 17 nogen informa informa 2016 [Presen tion in tion in 7:15 PM ce] in source source Urine data data by Test strip Ketones [Presence] in Urine by Automated test strip Observa Value Referen Units Interpr Notes Date tion ce etation Range Ketones MODERAT NEGATIV mg/dl No No October 17 E(40mg/ E informa informa 2016 [Presen dl) tion in tion in 7:15 PM ce] in source source Urine data data by Automat ed test strip
--- OUTSIDE RECORDS SUMMARY | 2016-12-03 13:20 | External Medical Summary Rpt ---
[...] [employer] honePer formed at: [facility] [id number] [place], [place] [id number] Directo r: Johnny Mosquera MD, Phone: [phone] Opiates Negativ Cutoff= No No Opiate Nov [...] sent to: 2016 3:30 Coagulati on in [facility] on assay source Ekta HIGH [...] sent to: 2016 3:30 Coagulati on in [facility] PM on assay source Ekta HIGH 11/10/16 [...]
--- NOTE | 2016-12-03 13:36 | Emergency Room Report ---
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 CALLER STATED TO EMS DISPATCH THAT PATIENT WAS LETHARGIC. Onset of symptoms date/time:12/03/1602/12/1200 or onset unknown for: Treatment Prior to Arrival: SL #20 L WRIST, [place] 500ML. BLOOD SPECIMEN OBTAIN - FSBS 500+ POST [employer] Provided by:EMT Sepsis Risk Assessment: Temp: 98.1 B/P: 126/80 MAP: 95 Pulse: 117 Resp: 16 Recent fever? N Clinical Suspician of Infection? N Mental Status: 2 - Mildly Altered Sepsis Risk:Low Sepsis Risk Have you (or family members/close friends) recently traveled outside the [place]? N If Yes, where/when: Have you had exposure to infectious disease within the past month? N TB? Other? Specify: Source patient, RN notes reviewed, family, EMS Exam Limitations clinical condition Comment Pt's cousin went to visit her today and could not arouse her after knocking on her door for 45 minutes. She called EMS who came and found the pt. to be confused and lethargic. She is a Diabetic, and has history of CAD with stents and CHF and this past she fell at home and was evaluated in the ED anf felt to be OK. The confusion started sometime in the last 12 to 24 hours and she has brusing around both eyes and her memory is impaired and her speech is broken and she has a difficult time forming sentences and tries extremely hard to formulate her sentences. She is on Coumadin for PE about 2 months ago and she is also on Plavix for CAD and stents Cardiac Chest Pain Chest pain indicative of cardiac No ALLERGIES Coded Allergies: No Known Allergies (11/07/16) Home Medications Active Scripts Warfarin Sodium (Coumadin) 5 MG PO DAILY 3 Days Prov: 11/09/16 Reported Medications Omeprazole (Omeprazole 40MG) 40 MG PO DAILY INSUL REG 30%ISOPHAN 70% HUMAN (Humulin 70-30 Vial) 30 UNITS SC QAM INSUL REG 30%ISOPHAN 70% HUMAN (Humulin 70-30 Vial) 20 UNITS SC QPM Furosemide 40 MG PO BID #60 TAB Isosorbide Mononitrate (Isosorbide Mononitrate ER) 30 MG PO DAILY Buspirone Hcl 15 MG PO TID #90 LISINOPRIL (Lisinopril) 20 MG PO DAILY Clopidogrel Bisulfate (Plavix) 75 MG PO DAILY Spironolactone (Spironolactone) 25 MG NG BID Glipizide 10 MG PO TID Atorvastatin Calcium (Atorvastatin) 80 MG PO DAILY Aspirin (Aspirin EC 81MG Tab) 81 MG PO DAILY HYDROCODONE/ACETAMINOPHEN (Hydrocodon-Acetaminophn 10-325) 1 TAB PO TID #90 HYDROCODONE/ACETAMINOPHEN (Clever 10-325 Tablet) 1 TAB PO TID NITROGLYCERIN (Nitrostat) 0.4 MG SL PRN PRN CHEST PAIN Bupropion Hcl (Bupropion 75MG) 75 MG PO DAILY History Medical History General CAD? No Angina: Yes NE: Yes Hypertension? Yes Hyperlipidemia? Yes CHF? Yes DVT? No PE? No COPD? No Asthma? No Anemia? No GERD? No Gastric ulcers? No GI Bleed? No Hernia? No Thyroid Problems? No Hypothyroidism? No CVA? No Seizures? No Diabetes? Yes Insulin Dependent: Yes Insulin Pump: No Home FSBS? Yes Renal Insuffiency? No End Stage Renal Disease? No UTI? Yes Stones? No BPH? No GB Disease: No Nephritic Syndrome? No Asplenia? No Hepatitis? Yes Sickle Cell Disease? No Arthritis? Yes Migraines? No Cataracts? Yes Glaucoma? No MRSA? No HIV? No TB? No Anxiety? Yes Depression? Yes Cancer? No More? Yes Additional hx: OSTEOARTHRITIS Immunization Hx DT/Tetanus 5-10 Years Ago Flu Refused Pneumonia Received In Past Surgical Hx Previous Surgery?Y TUBAL CARDIAC STENTS CARDIAC CATH 06/12 Family History Family Hx Diabetes Yes CAD Yes Hypertension Yes Hyperlipidemia Yes Cancer Yes TB No Social History Smoking Hx Smoker: Never Smoker Tobacco: No Packs/day N/A Alcohol Alcohol: No Review of Systems All Other Systems Reviewed and Negative Constitutional see HPI Eyes see HPI Respiratory denies no symptoms reported Psychiatric/Neurological see HPI Physical Exam Vital Signs Vital Signs Date Time Temp Pulse Resp B/P Pulse O2 O2 Flow FiO2 Ox Delivery Rate 12/03 1557 115 16 163/72 96 12/03 1524 115 16 109/89 99 12/03 1345 112 16 144/83 99 12/03 1305 98.1 117 16 126/80 99 General Appearance normal appearance, no apparent distress Eye Exam - bilateral eye other (bruising around both eyes) Respiratory Status No: respiratory distress. Lung Sounds bilateral: normal breath sounds. 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 No Results/Orders Laboratory Tests 12/03/16 1525: POC Glucose 457 *H 12/03/16 1512: Urine Color YELLOW, Urine Appearance Sl Cloudy, Urine pH 5.0, Ur Specific Wideman 1.015, Urine Protein TRACE H, Urine Ketones 4+, Urine Blood TRACE H, Urine Nitrate NEGATIVE, Urine Bilirubin 3+ H, Urine Urobilinogen 0.2, Ur Leukocyte Esterase NEGATIVE, Urine RBC OCC, Urine WBC 10-20, Ur Squamous Epith Cells 10-20, Urine Bacteria 4+, Urine Glucose 4+ H 12/03/16 1500: ABG pH 7.33 L, ABG pCO2 (Temp Corrct 26.6 L, ABG pO2 (Temp Correct 106.6 H, ABG HCO3 13.6 L, ABG Total CO2 14.4 L, ABG O2 Sat (Calculated) 97.7, ABG Base Excess -12.6 L, Jesús Test ACCEPTABLE, Blood Gas Comments RIGHT RADIAL 12/03/16 1400: Lactic Acid 1.8 12/03/16 1400: Sodium 132 L, Potassium 5.0, Chloride 91 L, Carbon Dioxide 17 L, BUN 37 H, Creatinine 1.9 H, Estimated Creat Clear 40 L, Estimated GFR (MDRD) 27 L, Glucose , Calcium 10.3 H, Total Bilirubin 1.2 H, AST 30, ALT 22, Alkaline Phosphatase 338 H, Creatine Kinase 149, Total Protein 8.8 H, Albumin 2.7 L, Globulin 6.1 H, Albumin/Globulin Ratio 0.4 L, PT 24.9 H, INR 2.33 H, APTT 28.5, WBC 9.6, RBC 3.74 L, Hgb 11.2 L, Hct 37.5, MCV 100.5 H, RDW 15.1, Plt Count 280, MPV 8.4, Gran % 79.1, Gran # 7.6, Lymphocytes % 12.4, Monocytes % 7.7 , Eosinophils % 0.3, Basophils % 0.5, Lymphocytes # 1.2, Monocytes # 0.7, Eosinophils # 0.0, Basophils # 0.1, PUBS MCHC 29.8 L, MCH 30.0 Current Medication Orders Sig/Charlee Start time Last Medication Dose Route Stop Time Status Admin Sodium Chloride 1,000 ML .STK-MED ONE 12/03 1547 DC IV Sodium Chloride 1,000 ML .Q8H 12/03 1530 AC 12/03 IV 12/04 0329 1550 Sodium Chloride 10 ML PRN PRN 12/03 1530 AC IV 12/04 1529 Insulin Human Regular 0 .STK-MED ONE 12/03 1500 DC .ROUTE Insulin Human Regular 8 UNITS ONCE ONE 12/03 1445 DC 12/03 IVP 12/03 1446 1503 Sodium Chloride 10 ML PRN PRN 12/03 1345 AC IV 12/04 1337 Orders Procedure Date/time Status DIET-NOTHING BY MOUTH 12/03 D Active Decision to admit 12/03 1552 Active FINGERSTICK BLOOD SUGAR 12/03 1525 Complete CULTURE, URINE 12/03 1512 Active ARTERIAL BLOOD GAS REQUEST 12/03 1442 Active GEN NSG/PT REQ (NOT FOR MEDS!) 12/03 1442 Active CHEST-AP VIEW ONLY 12/[address] HEAD W/O CONTRAST 12/03 1400 Active CULTURE, BLOOD 12/03 1340 Active CULTURE, BLOOD 12/03 1338 Active LACTIC ACID 12/[address] HEAD REQ 12/03 1337 Complete IV SALINE LOCK 12/03 1337 Active PROTIME/PARTIAL PROTIME 12/03 1337 Complete ELECTROCARDIOGRAM REQUEST 12/03 1327 Active URINALYSIS/COMPLETE 12/03 1327 Complete CPK 12/03 1327 Complete CBC WITH AUTO DIFF 12/03 1327 Complete CHEM 12 PROFILE 12/03 1327 Complete XRAY/CT/US XRAY/CT/US XRAY chest XR interpretation by reviewed by me Xray Results normal/NAD CT head CT interpretation by reviewed by me Time results known: 1530 CT Results normal/NAD Departure Departure Time of Disposition 1531 Disposition Still a Patient Clinical Impression Primary Impression: Diabetes mellitus with hyperglycemia Qualifiers: Diabetes mellitus type: other specified (including IDALIA) Diabetes mellitus intermediate insulin use: unspecified intermediate insulin use status Qualified Code: E13.65 - Other specified diabetes mellitus with hyperglycemia Secondary Impressions: Chronic kidney disease, stage 3 Confusion Diabetic ketoacidosis Qualifiers: Diabetes mellitus type: type 2 Diabetes mellitus complication detail: without coma Qualified Code: E13.10 - Other specified diabetes mellitus with ketoacidosis without coma Condition STABLE Referrals Evelin HIGH,Johnny Lui (Family) Additional Instructions Discussed with Dr. Garcia and admit to Dr. Waters to OBS Discharge Counseling Counseled pt/family regarding diagnosis, test results, medications/RX ED Critical Care Critical Care No If Critical Care minutes are documented, the time involved in the performance of seperately reportable procedures was not counted toward critical care time documented. I directly delivered medical care to this critically ill and/or injured patient. Timely evaluation and treatment was necessary to address the significant organ system(s) dysfunction [place] in [place] [address]
[2016-12-03 14:14] LABS: HEMOGLOBIN 11.2 g/dL (12.2-16.2); LYMPH # 1.2 K/mm3 (0.7-4.5); LYMPH % 12.4 % (10-50.0)
[2016-12-03 15:07] LABS: ARTERIAL ABE -12.6 MMOL/L (-2.4-+2.3); ARTERIAL PO2 106.6 MMHG (80-100); ARTERIAL TCO2 14.4 MMOL/L (23-27); OXYGEN 28% NC
[2016-12-03 15:08] LABS: ALLEN'S TEST ACCEPTABLE
[2016-12-03 15:35] LABS: URINE BILIRUBIN - DIPSTICK 3+ (NEG); URINE BLOOD TRACE (NEG)
--- OUTSIDE RECORDS SUMMARY | 2016-12-03 16:03 | External Medical Summary Rpt ---
Author Author , HAM Teixeira HAM Address Unknown Phone [email or web address] Purpose Continuity of Care Document - 10-17-2016 through 2016 Results Labs Lab Lab Date Result Refere Interp Status Commen Order Detail nces retati t Range on Urinalysis dipstick W Reflex Microscopic panel in Urine (12-03-2016 15:12) Bacteri 4+ O complet a 017 ed [Presen 15:12 ce] in Urine sedimen t by Light microsc opy Erythro OCC 0 complet cytes 017 ed [Presen 15:12 ce] in Urine sedimen t by Light microsc opy Epithel 10-20 0#/hp complet ial 017 f - ed cells.s 15:12 5#/hp quamous f [Presen ce] in Urine sedimen t by Microsc opy high power field Leukocy 10-20 O complet maria esther 017 wbc/hpf ed [#/volu 15:12 me] in Urine Urinalysis dipstick W Reflex Microscopic panel in Urine (12-03-2016 15:12) Appeara Sl CLEAR complet nce of 017 Cloudy ed Urine 15:12 Bilirub 3+ NEG Abnorma complet in 017 l ed [Presen 15:12 ce] in Urine by Test strip Erythro TRACE NEG Abnorma complet cytes 017 l ed [Presen 15:12 ce] in Urine Color YELLOW YELLOW complet of 017 ed Urine 15:12 Ketones 4+ NEG complet 017 ed [Presen 15:12 ce] in Urine by Automat ed test strip Mucus NEGATIV NEG complet [Presen 017 E ed ce] in 15:12 Urine sedimen t by Light microsc opy Nitrite NEGATIV NEG complet 017 E ed [Presen 15:12 ce] in Urine by Test strip Urobili 0.2 NEG complet nogen 017 ed [Presen 15:12 ce] in Urine by Test strip Gas panel in Arterial blood (12-03-2016 15:00) Arteria ACCEPTA complet l 017 BLE ed patency 15:00 Wrist artery --pre arteria l punctur e SOURCE RIGHT complet 017 RADIAL ed 15:00 Drugs identified in Urine by Screen method [...] sedimen t by Light microsc opy Mucus OCC OCC complet [Presen 017 ed ce] in 19:15 Urine sedimen t by Light microsc opy Epithel 20-50 0#/hp complet ial 017 f - ed cells.s 19:15 5#/hp quamous f [Presen ce] in Urine sedimen t by Microsc opy high power field Leukocy 50-100 O complet maria esther 017 wbc/hpf ed [#/volu 19:15 me] in Urine Urinalysis dipstick W Reflex Microscopic panel in Urine (10-17-2016 19:15) Appeara CLEAR CLEAR complet nce of 017 ed Urine 19:15 Bilirub 1+ NEG Abnorma complet in 017 l ed [Presen 19:15 ce] in Urine by Test strip Erythro 1+ NEG Abnorma complet cytes 017 l ed [Presen 19:15 ce] in Urine Color YELLOW YELLOW complet of 017 ed Urine 19:15 Ketones 1+ NEG Abnorma complet 017 l ed [Presen 19:15 ce] in Urine by Automat ed test strip Mucus 1+ NEG Abnorma complet [Presen 017 l ed ce] in 19:15 Urine sedimen t by Light microsc opy Nitrite POSITIV NEG Abnorma complet 017 E l ed [Presen 19:15 ce] in Urine by Test strip Urobili 0.2 NEG complet nogen 017 ed [Presen 19:15 ce] in Urine by Test strip Ketones [Presence] in Urine by Automated test strip (10-17-2016 19:15) Ketones MODERAT NEGATIV complet 017 E(40mg/ E ed [Presen 19:15 dl) ce] in Urine by Automat ed test strip
--- OUTSIDE RECORDS SUMMARY | 2016-12-03 16:03 | External Medical Summary Rpt ---
Author Author , HAM Teixeira HAM Address Unknown Phone [email or web address] Purpose Continuity of Care Document - 10-17-2016 [...]
--- OUTSIDE RECORDS SUMMARY | 2016-12-03 16:05 | External Medical Summary Rpt ---
Demographics Preferred Language Occitan Marital Status Unknown Evangelical Affiliation Unknown Race Unknown Ethnic Group Unknown Author Author , TOBI CHEEK Address Unknown Phone Immunization Unable to retrieve immunization data due to connection failure with Immunization Registry. Please try again later.
--- OUTSIDE RECORDS SUMMARY | 2016-12-03 16:05 | External Medical Summary Rpt ---
Demographics Preferred Language Greenlandic Marital Status Unknown Baptism Affiliation Unknown Race Unknown Ethnic Group Unknown Author Author , TOBI CHEEK Address Unknown Phone Immunization Unable to retrieve immunization data due to connection failure with Immunization Registry. Please try again later.
--- OUTSIDE RECORDS SUMMARY | 2016-12-03 16:07 | External Medical Summary Rpt ---
Author Author [facility], [facility] [employer] Organization [facility] [employer] Address Unknown Phone Unavailable Results Glucose [Mass/volume] in Capillary blood by Glucometer Observa Value Referen Units Interpr Notes Date tion ce etation Range Glucose 70 - 110 mg/dl High No Dec 03 [Mass/vol alert informati 2017 3:25 ume] in on in PM Capillary source blood by data Glucomete r Urinalysis dipstick W Reflex Microscopic panel in Urine Observa Value Referen Units Interpr Notes Date tion ce etation Range Appeara Sl CLEAR No No No Dec 03 nce of Cloudy informa informa informa 2016 Urine tion in tion in tion in 3:12 PM source source source data data data Bacteri 4+ O No No No Dec 03 a informa informa informa 2016 [Presen tion in tion in tion in 3:12 PM ce] in source source source Urine data data data sedimen t by Light microsc opy Bilirub 3+ NEG No Abnorma BILIRUB Dec 03 in informa l IN 2016 [Presen tion in CONFIRM 3:12 PM ce] in source ED WITH Urine data by Test ICTOTES strip T Erythro TRACE NEG No Abnorma No Dec 03 cytes informa l informa 2016 [Presen tion in tion in 3:12 PM ce] in source source Urine data data Color YELLOW YELLOW No No No Dec 03 of informa informa informa 2017 Urine tion in tion in tion in 3:12 PM source source source data data data Glucose NEG No High No Dec 03 [Mass/vol informati informati 2016 3:12 ume] in on in on in PM Urine by source source Test data data strip Ketones 4+ NEG mg/dL No No Dec 03 informa informa 2016 [Presen tion in tion in 3:12 PM ce] in source source Urine data data by Automat ed test strip Mucus NEGATIV NEG No No No Dec 03 [Presen E informa informa informa 2016 ce] in tion in tion in tion in 3:12 PM Urine source source source sedimen data data data t by Light microsc opy Nitrite NEGATIV NEG No No No Dec 03 E informa informa informa 2016 [Presen tion in tion in tion in 3:12 PM ce] in source source source Urine data data data by Test strip pH of 5.0 - 8.5 No Normal No Dec 03 Urine informati informati 2016 3:12 on in on in PM source source data data Protein NEG mg/dL High No Dec 03 [Mass/vol informati 2017 3:12 ume] in on in PM Urine by source Automated data test strip Erythro OCC 0 rbc/hpf No No Dec 03 cytes informa informa 2016 [Presen tion in tion in 3:12 PM ce] in source source Urine data data sedimen t by Light microsc opy Specific 1.005 - No Normal No Dec 03 gravity 1.030 informati informati 2016 3:12 of Urine on in on in PM source source data data Epithel 10-20 0 - 5 #/hpf No No Dec 03 ial informa informa 2016 cells.s tion in tion in 3:12 PM quamous source source data data [Presen ce] in Urine sedimen t by Microsc opy high power field Urobili 0.2 NEG E.U./dL No No Dec 03 nogen informa informa 2016 [Presen tion in tion in 3:12 PM ce] in source source Urine data data by Test strip Leukocy [10 O wbc/hpf No No Dec 03 maria esther wbc/hpf informa informa 2016 [#/volu ; 20 tion in tion in 3:12 PM me] in wbc/hpf source source Urine ] data data Urinalysis dipstick W Reflex Microscopic panel in Urine Observa Value Referen Units Interpr Notes Date tion ce etation Range Appeara Sl CLEAR No No No Dec 03 nce of Cloudy informa informa informa 2017 Urine tion in tion in tion in 3:12 PM source source source data data data Bilirub 3+ NEG No Abnorma BILIRUB Dec 03 in informa l IN 2017 [Presen tion in CONFIRM 3:12 PM ce] in source ED WITH Urine data by Test ICTOTES strip T Erythro TRACE NEG No Abnorma No Trey 9 cytes informa l informa 2016 [Presen tion in tion in 3:12 PM ce] in source source Urine data data Color YELLOW YELLOW No No No Dec 03 of informa informa informa 2016 Urine tion in tion in tion in 3:12 PM source source source data data data Glucose NEG No High No Dec 03 [Mass/vol informati informati 2016 3:12 ume] in on in on in PM Urine by source source Test data data strip Ketones 4+ NEG mg/dL No No Dec 03 informa informa 2016 [Presen tion in tion in 3:12 PM ce] in source source Urine data data by Automat ed test strip Mucus NEGATIV NEG No No No Dec 03 [Presen E informa informa informa 2016 ce] in tion in tion in tion in 3:12 PM Urine source source source sedimen data data data t by Light microsc opy Nitrite NEGATIV NEG No No No Dec 03 E informa informa informa 2016 [Presen tion in tion in tion in 3:12 PM ce] in source source source Urine data data data by Test strip pH of 5.0 - 8.5 No Normal No Dec 03 Urine informati informati 2016 3:12 on in on in PM source source data data Protein NEG mg/dL High No Dec 03 [Mass/vol informati 2016 3:12 ume] in on in PM Urine by source Automated data test strip Specific 1.005 - No Normal No Dec 03 gravity 1.030 informati informati 2016 3:12 of Urine on in on in PM source source data data Urobili 0.2 NEG E.U./dL No No Dec 03 nogen informa informa 2016 [Presen tion in tion in 3:12 PM ce] in source source Urine data data by Test strip Gas panel in Arterial blood Observa Value Referen Units Interpr Notes Date tion ce etation Range Base -2.4-+2.3 MMOL/L Low No Dec 03 excess in informati 2017 3:00 Arterial on in PM blood source data Arteria ACCEPTA No No No No Dec 03 l BLE informa informa informa informa 2017 patency tion in tion in tion in tion in 3:00 PM Wrist source source source source artery data data data data --pre arteria l punctur e Bicarbona 22.0 - MMOL/L Low No Nov 9 te 26.0 informati 2016 3:00 [Moles/vo on in PM lume] in source Arterial data blood Oxygen No No No No Dec 03 content informati informati informati informati 2016 3:00 in on in on in on in on in PM Arterial source source source source blood data data data data Carbon 35.0 - MMHG Low No Dec 03 dioxide 45.0 informati 2016 3:00 [Partial on in PM pressure] source in data Arterial blood pH of 7.35 - MMOL/L Low No Dec 03 Arterial 7.45 ati 2016 3:00 blood on in PM source data Oxygen 80 - 100 MMHG High No Dec 03 [Partial informati 2016 3:00 pressure] on in PM in source Arterial data blood Oxygen 90 - 100 % Normal No Nov 9 saturatio informati 2016 3:00 n.calcula on in PM deloris from source oxygen data partial pressure in Arterial blood SOURCE RIGHT No No No No Dec 03 RADIAL informa informa informa informa 2017 tion in tion in tion in tion in 3:00 PM source source source source data data data data Carbon 23 - 27 MMOL/L Low No Dec 03 dioxide, informati 2016 3:00 total on in PM [Moles/vo source lume] in data Arterial blood PT & aPTT panel in Platelet poor plasma by Coagulation assay Observa Value Referen Units Interpr Notes Date tion ce etation Range INR in 0.9 - 1.1 No High INDICATIO Dec 03 Blood by informati N 2017 2:00 Coagulati on in PM on assay source INR data RANGETHER APY FOR DVT, PE, ATRIAL FIB; 2.0 - 3.0PROPHY LAXIS FOR VTETHERAP Y FOR MECHANICA L HEART 2.5 - 3.5VALVE; PREVENTIO N OF SYSTEMICE MBOLISM SECONDARY TO AMI Prothromb 9.4 - SECONDS High No Nov 9 in time 11.8 informati 2016 2:00 (PT) in on in PM Platelet source poor data plasma by Coagulati on assay Activated 23.6 - SECONDS Normal No Nov 9 partial 34.0 informati 2016 2:00 thrombpla on in PM stin time source (aPTT) data in Platelet poor plasma by Coagulati on assay Comprehensive metabolic 2000 panel in Serum or Plasma Observa Value Referen Units Interpr Notes Date tion ce etation Range Albumin/G 1.1 - 1.8 No Low No Dec 03 lobulin informati informati 2016 2:00 [Mass on in on in PM ratio] in source source Serum or data data Plasma Albumin 3.4 - 5.0 gm/dL Low No Dec 03 [Mass/vol informati 2016 2:00 ume] in on in PM Serum or source Plasma data Alkaline 46 - 116 U/L High No Dec 03 phosphata informati 2016 2:00 se on in PM [Enzymati source c data activity/ volume] in Serum or Plasma Bilirubin 0.2 - 1.0 mg/dL High No Dec 03 .total informati 2016 2:00 [Mass/vol on in PM ume] in source Serum or data Plasma Urea 7 - 18 mg/dL High No Dec 03 nitrogen informati 2016 2:00 [Mass/vol on in PM ume] in source Serum or data Plasma Calcium 8.5 - mg/dL High No Dec 03 [Mass/vol 10.1 informati 2016 2:00 ume] in on in PM Serum or source Plasma data Chloride 98 - 107 mmoL/L Low No Dec 03 [Moles/vo informati 2016 2:00 lume] in on in PM Serum or source Plasma data Carbon 21.0 - mmoL/L Low No Dec 03 dioxide, 32.0 informati 2017 2:00 total on in PM [Moles/vo source lume] in data Serum or Plasma Creatinin 0.55 - mg/dL High No Dec 03 e 1.02 informati 2016 2:00 [Mass/vol on in PM ume] in source Serum or data Plasma Creatinin 50 - 200 ML/MIN Low No Dec 03 e renal informati 2016 2:00 clearance on in PM source predicted data by Cockcroft -Gault formula Estimated 59- ML/MIN Low REFERENCE Dec 03 RANGE: 2017 2:00 glomerula >60 PM r ML/MIN/1. filtratio 73 SQUARE n rate METERSIf (GF this patient is -A merican, then multiply theresult by 1.210. Globulin 1.3 - 3.2 gm/dL High No Dec 03 [Mass/vol informati 2016 2:00 ume] in on in PM Serum source data Glucose 74 - 106 mg/dL No Dec 03 [Mass/vol informati 2017 2:00 ume] in on in CRITICAL PM Serum or source RESULTS Plasma data RESU LTS CALLED TO: 12/03/16 1428 James,Rich shahbaz Potassium 3.5 - 5.1 mmoL/L Normal No Dec 03 informati 2016 2:00 [Moles/vo on in PM lume] in source Serum or data Plasma Sodium 136 - 145 mmoL/L Low No Dec 03 [Moles/vo informati 2016 2:00 lume] in on in PM Serum or source Plasma data Aspartate 15 - 37 U/L Normal No Dec 03 informati 2016 2:00 aminotran on in PM sferase source [Enzymati data c activity/ volume] in Serum or Plasma Alanine 12 - 78 U/L Normal No Dec 03 aminotran informati 2016 2:00 sferase on in PM [Enzymati source c data activity/ volume] in Serum or Plasma Protein 6.4 - 8.2 gm/dL High No Dec 03 [Mass/vol informati 2016 2:00 ume] in on in PM Serum or source Plasma data Creatine kinase [Enzymatic activity/volume] in Serum or Plasma Observa Value Referen Units Interpr Notes Date ti ce etation Range Creatine 26 - 192 U/L Normal No Dec 03 kinase informati 2016 2:00 [Enzymati on in PM c source activity/ data volume] in Serum or Plasma Lactate [Moles/volume] in Blood Observa Value Referen Units Interpr Notes Date ti ce etation Range Lactate 0.4 - 2.0 mmol/L Normal No Dec 03 [Moles/vo informati 2016 2:00 lume] in on in PM Blood source data CBC W Auto Differential panel in Blood Observa Value Referen Units Interpr Notes Date ti ce etation Range Basophils 0 - 0.2 K/MM3 Normal No Dec 03 informati 2016 2:00 [#/volume on in PM ] in source Blood by data Automated count Basophils 0.1 - 2.0 % Normal No Dec 03 informati 2016 2:00 leukocyte on in PM s in source Blood by data Automated count Eosinophi 0.0 - 0.4 K/mm3 Normal No Dec 03 ls informati 2016 2:00 [#/volume on in PM ] in source Blood by data Automated count Eosinophi 0.1 - % Normal No Dec 03 ls/100 12.0 informati 2016 2:00 leukocyte on in PM s in source Blood by data Automated count Granulocy 1.8 - 7.8 K/mm3 Normal No Dec 03 maria esther inform2016 2:00 [#/volume on in PM ] in source Blood by data Automated count Granulocy 37.0 - % Normal No Dec 03 maria esther/100 80.0 informati 2016 2:00 leukocyte on in PM s in source Blood by data Automated count Hematocri 37.0 - % Normal No Dec 03 t [Volume 47.0 ati 2016 2:00 on in PM Fraction] source of Blood data Hemoglobi 12.2 - g/dL Low No Dec 03 n 16.2 informati 2016 2:00 [Mass/vol on in PM ume] in source Blood data Lymphocyt 0.7 - 4.5 K/mm3 Normal No Dec 03 es informati 2016 2:00 [#/volume on in PM ] in source Unspecifi data ed specimen by Automated count Lymphocyt 10 - 50.0 % Normal No Dec 03 es inform2016 2:00 [#/volume on in PM ] in source Unspecifi data ed specimen by Automated count Erythrocy 27 - 31.2 pg Normal No Dec 03 te mean informati 2016 2:00 corpuscul on in PM ar source hemoglobi data n [Entitic mass] Erythrocy 31.8 - g/dl Low No Dec 03 te mean 35.4 2016 2:00 corpuscul on in PM ar source hemoglobi data n concentra tion [Mass/vol ume] by Automated count Erythrocy 82.2 - fl High No Dec 03 te mean 97.8 ati 2016 2:00 corpuscul on in PM ar volume source [Entitic data volume] by Automated count Monocytes 0.1 - 1.0 K/mm3 Normal No Dec 03 informati 2016 2:00 [#/volume on in PM ] in source Blood by data Automated count Monocytes 1.7 - 9.3 % Normal No Dec 03 informati 2016 2:00 leukocyte on in PM s in source Blood by data Automated count Platelet 7.4 - fl Normal No Dec 03 mean 10.4 informati 2016 2:00 volume on in PM [Entitic source volume] data in Blood by Automated count Platelets 142 - 424 K/mm3 Normal No Nov 9 informati 2016 2:00 [#/volume on in PM ] in source Blood data Erythrocy 4.2 - 5.4 M/mm3 Low No Nov 9 maria esther informati 2016 2:00 [#/volume on in PM ] in source Amniotic data fluid Erythrocy 11.5 - % Normal No Dec 03 te 17.5 informati 2017 2:00 distribut on in PM ion width source [Entitic data volume] by Automated count Leukocyte 4.8 - K/MM3 Normal No Nov 9 s 10.8 informati 2016 2:00 [#/volume on in PM ] in source Blood data Potassium [Moles/volume] in Serum or Plasma Observa Value Referen Units Interpr Notes Date tion ce etation Range Potassium 3.5 - 5.1 mmoL/L High No Nov 30 informati 2016 8:25 [Moles/vo on in AM lume] in source Serum or data Plasma Comprehensive metabolic 2000 panel in Serum or Plasma Observa Value Referen Units Interpr Notes Date tion ce etation Range Albumin/G 1.1 - 1.8 No Low No Nov 30 lobulin informati informati 2016 6:35 [Mass on in on in AM [...] Normal No Nov 30 dioxide, 32.0 informati 2016 6:35 total on in AM [Moles/vo source lume] in data Serum or Plasma Creatinin 0.55 - mg/dL High No Nov 30 e 1.02 informati 2016 6:35 [Mass/vol on in AM ume] in [...] gm/dL High No Nov 30 [Mass/vol informati 2016 6:35 ume] in on in AM Serum source data Glucose 74 - 106 mg/dL High Nov 30 [Mass/vol alert 2017 6:35 ume] in CRITICAL AM Serum or RESULTS Plasma RESU LTS CALLED TO: DORON 11/30/16 0658 Raghu Arora Potassium 3.5 - 5.1 mmoL/L High No [...] INDICATIO Nov 30 Blood by informati N 2016 6:00 Coagulati on in AM on assay source INR data RANGETHER APY FOR DVT, PE, ATRIAL FIB; 2.0 - 3.0PROPHY LAXIS FOR VTETHERAP Y FOR MECHANICA L HEART 2.5 - 3.5VALVE; PREVENTIO N OF SYSTEMICE MBOLISM SECONDARY TO AMI Prothromb 9.4 - SECONDS High No Nov 30 in time 11.8 informati 2016 6:00 (PT) in on in AM [...] 192 U/L Normal No Nov 30 kinase informati 2016 6:00 [Enzymati on in AM c source activity/ data volume] in Serum or Plasma Troponin 0.00 - ng/mL Normal No Nov 30 I.cardiac 0.06 informati 2016 6:00 on in AM [Mass/vol source ume] in data Serum or Plasma Activated partial thrombplastin time (aPTT) in Platelet poor plasma by Coagulation assay Observa Value Referen Units Interpr Notes Date ti ce etation Range Activated 23.6 - SECONDS Normal No Nov 30 partial 34.0 informati 2016 6:00 thrombpla on in AM stin time source (aPTT) data in Platelet poor plasma by Coagulati on assay CBC W Auto Differential panel in Blood Observa Value Referen Units Interpr Notes Date tion ce etation Range Basophils 0 - 0.2 K/MM3 Normal No Nov 30 informati 2016 6:00 [#/volume on in AM ] in source Blood by data Automated count Basophils 0.1 - 2.0 % Normal No Nov 30 /100 informati 2016 6:00 leukocyte on in AM s in source Blood by data Automated count Eosinophi 0.0 - 0.4 K/mm3 Normal No Nov 30 ls informati 2016 6:00 [#/volume on in AM ] in source Blood by data Automated count Eosinophi 0.1 - % Normal No Nov 30 ls/100 12.0 informati 2017 6:00 leukocyte on in AM s in source Blood by data Automated count Granulocy 1.8 - 7.8 K/mm3 Normal No Nov 30 maria esther informati 2016 6:00 [#/volume on in AM ] in source Blood by data Automated count Granulocy 37.0 - % Normal No Nov 30 maria esther/100 80.0 informati 2017 6:00 leukocyte on in AM [...] K/mm3 Normal No Nov 30 es informati 2017 6:00 [#/volume on in AM [...] Normal No Nov 30 mean 10.4 informati 2016 6:00 volume on in AM [Entitic source volume] data in Blood by Automated count Platelets 142 - 424 K/mm3 No No Nov 30 informati informati 2016 6:00 [#/volume on in on in AM [...] Leukocyte 4.8 - K/MM3 Normal No Nov 6 s 10.8 informati 2017 6:00 [#/volume on in AM ] in source Blood data Opiates and Oxycodone(GC/MS),U Observa Value Referen Units Interpr Notes Date tion ce etation Range Oxycodo Negativ Cutoff= No No Test Nov 27 ne/Oxym e 100 informa informa include 2017 orph tion in tion in s 10:19 source source Oxycodo AM data data ne and [employer] honePer formed at: [facility] [id number] [place], [place] [address] Directo r: Johnny Mosquera MD, Phone: [phone] Opiates Negativ Cutoff= No No Opiate Nov [...] No Nov 27 mine E informa informa 2017 [Presen tion in tion in 10:19 ce] [...] sent to: 2016 3:30 Coagulati on in Evelin PM on assay source Ekta HIGH 11/16/16 [id number] enship,Pepe mmy Pharmacis t recommend ation for Warfarint herapy is: PATIENT INR 1.7 TODAY VIA FINGERSTI CK.RECOMM ENDED PATIENT INCREASE THE DOSE OF WARFARIN BY 2 MGWEEKLY TO 3 MG ON MON/FRI; 2 MG ON SUN/SUN/ ED/SUN/ T.WILL FOLLOW UP IN 2 WEEKS. *FOR [...] Nov 10 Blood by informati sent to: 2017 3:30 Coagulati on in Evelin PM on assay source [facility] HIGH 11/10/16 1602Blank carmen,Pepe mmy Pharmacis t recommend ation for Warfarint [...] High No Oct 14 [Mass/vol alert informati 2016 5:02 ume] in on in PM Capillary [...] High No Oct 14 [Mass/vol alert informati 2016 6:36 ume] in on in AM Capillary source blood by data Glucomete r Basic metabolic panel in Blood Observa Value Referen Units Interpr Notes Date ti ce etation Range Urea 7 - 18 mg/dL High No Nov 08 nitrogen informati 2016 6:30 [Mass/vol on in AM ume] in source Serum or data Plasma Calcium 8.5 - mg/dL Normal No Nov 08 [Mass/vol 10.1 informati 2016 6:30 ume] in on in AM Serum [...] mg/dL High No Oct 14 [Mass/vol informati 2016 6:30 ume] in on in AM Serum or source Plasma data Potassium 3.5 - 5.1 mmoL/L Normal No Oct 14 informati 2016 6:30 [Moles/vo on in AM lume] in [...] No Oct 14 maria esther/100 80.0 informati 2017 6:30 leukocyte on in AM s in source Blood by data Automated count Hematocri 37.0 - % Low No Oct 14 t [Volume 47.0 informati 2016 6:30 on in AM Fraction] source of Blood data Hemoglobi 12.2 - g/dL Low Nov 08 n 16.2 informati 2017 6:30 [Mass/vol on in AM ume] in source Blood data Lymphocyt 0.7 - 4.5 K/mm3 Normal No Oct 14 es informati 2017 6:30 [#/volume on in AM ] in source Unspecifi data ed specimen by Automated count Lymphocyt 10 - 50.0 % Normal No Oct 14 es informati 2016 6:30 [#/volume on in AM ] in source Unspecifi data ed specimen by Automated count Erythrocy 27 - 31.2 pg Normal No Oct 14 te mean informati 2016 6:30 corpuscul on in AM ar source hemoglobi data n [Entitic mass] Erythrocy 31.8 - g/dl Low No Rivas 14 te mean 35.4 informati 2017 6:30 [...] - 9.3 % High No Oct 14 / informati 2016 6:30 leukocyte on in AM s in source Blood by data Automated count Platelet 7.4 - fl Normal No Nov 08 mean 10.4 informati 2016 6:30 volume on in AM [Entitic source volume] data in Blood by Automated count Platelets 142 - 424 K/mm3 Normal No Oct 14 inform2016 6:30 [#/volume on in AM ] in source Blood data Erythrocy 4.2 - 5.4 M/mm3 Low No Nov 08 maria esther informati 2016 6:30 [#/volume on in AM ] in source Amniotic data fluid Erythrocy 11.5 - % Normal No Nov 08 te 17.5 informati 2016 6:30 distribut on in AM ion width source [Entitic data volume] by Automated count Leukocyte 4.8 - K/MM3 Normal No Nov 08 s 10.8 2016 6:30 [#/volume on in AM ] in source Blood data CBC W Auto Differential panel in Blood Observa Value Referen Units Interpr Notes Date tion ce etation Range Basophils 0 - 0.2 K/MM3 Normal No Nov 072016 [#/volume on in 12:25 PM ] in source Blood by data Automated count Basophils 0.1 - 2.0 % Normal No Nov 07 / informati 2016 leukocyte on in 12:25 PM s in source Blood by data Automated count Eosinophi 0.0 - 0.4 K/mm3 Normal No Nov 07 ls 2016 [#/volume on in 12:25 PM ] [...] Normal No Nov 07 maria esther/100 80.0 2016 leukocyte on in 12:25 PM s in source Blood by data Automated count Hematocri 37.0 - % Normal No Nov 07 t [Volume 47.0 informati 2016 on in 12:25 PM Fraction] source of Blood data Hemoglobi 12.2 - g/dL Normal No Nov 07 n 16.2 informati 2016 [Mass/vol on in 12:25 PM ume] in source Blood data Lymphocyt 0.7 - 4.5 K/mm3 Normal No Nov 07 es informati 2016 [#/volume on in 12:25 PM [...] 9.3 % High No Nov 07 /100 informati 2017 leukocyte on in 12:25 PM s in source Blood by data Automated count Platelet 7.4 - fl Normal No Nov 07 mean 10.4 inform2016 volume on in 12:25 PM [Entitic source volume] data in Blood by Automated count Platelets 142 - 424 K/mm3 Normal No Nov 07 informati 2016 [#/volume on in 12:25 PM ] in source Blood data Erythrocy 4.2 - 5.4 M/mm3 Low No Nov 07 maria esther informati 2016 [#/volume on in 12:25 PM ] in source Amniotic data fluid Erythrocy 11.5 - % Normal No Nov 07 te 17.5 informati 2016 distribut on in 12:25 PM ion [...] ng/mL High Nov 07 D-dimer alert NOTIFICAT 2016 FEU ION 11:25 AM [Mass/vol RESULT ume] [...] U/L Normal No October 18 kinase informati 2016 4:30 [Enzymati on in AM c source [...] 59- ML/MIN Low REFERENCE October 18 RANGE: 2016 4:30 glomerula >60 AM r ML/MIN/1. filtratio 73 SQUARE n rate METERSIf (GF this patient is -A merican, then multiply theresult by 1.210. Glucose 74 - 106 mg/dL High October 18 [Mass/vol alert 2016 4:30 ume] in CRITICAL AM Serum or [...] 2.0 % Normal No October 18 informati 2017 4:30 leukocyte on in AM s in [...] Blood data Hemoglobi 12.2 - g/dL Normal October 18 n 16.2 informati 2016 4:30 [...] Erythrocy 31.8 - g/dl Normal No October 18 te mean 35.4 informati 2016 [...] Monocytes 1.7 - 9.3 % Normal No May 24 /100 informati 2017 4:30 leukocyte on in AM s in source Blood by data Automated count Platelet 7.4 - fl Low No October 18 mean 10.4 informati 2016 4:30 volume on in AM [Entitic source volume] data in Blood by Automated count Platelets 142 - 424 K/mm3 Normal No October 18 informati 2017 4:30 [#/volume on in AM ] in source Blood data Erythrocy 4.2 - 5.4 M/mm3 Normal No October 18 maria esther informati 2016 4:30 [#/volume on in AM ] in source Amniotic data fluid Erythrocy 11.5 - % Normal No October 18 te 17.5 informati 2017 4:30 distribut on in AM ion width [...] October 17 content informati informati informati informati 2016 8:43 in on in on in on [...] MMHG Low No October 17 [Partial informati 2017 8:43 pressure] on in PM in source [...] Blood data Hemoglobi 12.2 - g/dL No No October 17 n 16.2 informati informati [...] - 9.3 % Normal No October 17 /100 informati 2016 7:40 leukocyte on in PM [...] Interpr Notes Date ti ce etation Range Appeara CLEAR CLEAR No [...] High No October 17 [Mass/vol informati informati 2017 7:15 ume] in on in on in [...] No No October 17 ial informa informa 2017 cells.s tion in tion in 7:15 PM [...]
--- OUTSIDE RECORDS SUMMARY | 2016-12-03 16:07 | External Medical Summary Rpt ---
[...] data ne and [employer] honePer formed at: [facility] [id number] [place], [place] [id number]Lab Directo r: Johnny Mosquera MD, Phone: [phone] Opiates Negativ Cutoff= No No Opiate Nov [...]
--- NOTE | 2016-12-03 22:49 | RADIOLOGY REPORT PS360 ---
CHEST-AP VIEW ONLY Ordering Physician: Eric Salamanca MD Patient Age: 66 years: Female HISTORY: AMSaltered mental status TECHNIQUE: COMPARISON is made to 11/30/2016 pCXR in 11/07/2016 2 view CXR FINDINGS Prominent rotation of the chest the left on today's portable CXR. This distorts the limited chest film and accentuates findings. However there Does appear to be slight progression mild perihilar/central infiltrate.. Also subtle residual infiltrate at the periphery the right midlung and right upper lobe similar to previous exam. Prominent elevation right hemidiaphragm again noted . The right apical cap, density appears slightly more evident but likely accentuated by the leftward rotation The left lung appears similar with slight improvement with slight regression of the subtle peripheral patchy infiltrate seen at the mid and upper lung field. Borderline/mild cardiomegaly with left ventricle & heart size likely accentuated by the leftward rotation Mediastinum difficult to evaluate but probably stable. IMPRESSION: Limited portable chest with prominent leftward rotation. Right Chest.: Slight progression of perihilar infiltrate on right, which may be exaggerated the left rotation. Subtle residual infiltrate right midlung & toward RUL. Left chest.: . Subtle improvement of the minimal peripheral patchy infiltrates \
[2016-12-04] VITALS (9 sets, daily range): BP systolic 93–177; BP diastolic 56–96
[2016-12-04 01:19] LABS: ALLEN'S TEST Y; ARTERIAL ABE -1.5 MMOL/L (-2.4-+2.3); ARTERIAL PO2 76.3 MMHG (80-100); ARTERIAL TCO2 24.3 MMOL/L (23-27); OXYGEN 2
--- NOTE | 2016-12-04 07:06 | PHARMACY CLINIC NOTE ---
Patient Demographics Patient Demographics Admission date: 12/03/16 Date: 12/04/16 Time: 07 Allergies Coded Allergies: No Known Allergies (11/07/16) HEIGHT- FT: 5 IN: 2.00 K.907 VTE General Information Labs: Laboratory Tests 12/03 1400 Coagulation PT (9.4 - 11.8 SECONDS) 24.9 H INR (0.9 - 1.1) 2.33 H APTT (23.6 - 34.0 SECONDS) 28.5 Hematology Hgb (12.2 - 16.2 g/dL) 11.2 L Hct (37.0 - 47.0 %) 37.5 Plt Count (142 - 424 K/mm3) 280 Disclaimer The following section includes nursing documentation that has been pulled in for pharmacy review. Patient's VTE score: 3 Patient's VTE Risk: LOW RISK Clinical trial participant? No VTE prophylaxis NQF [id number] VTE prophylaxis ordered? Yes Type of prophylaxis/treatment: BARTOLOME (PT IS TAKING WARFARIN) at 0705
[2016-12-04] MEDS ORDERED: COUMADIN 2MG TAB2 MG PO ×2 (07:58→08:00)
--- NOTE | 2016-12-04 09:01 | RADIOLOGY REPORT PS360 ---
CT HEAD WITHOUT CONTRAST CT BONE WINDOWS included ORDERING PHYSICIAN : Eric Salamanca MD PATIENT AGE: 66 years GENDER: Female PROCEDURE: Initial axial images headwithout contrast. Were followed by a helical CT scan through the head due to motion artifact. Axial sagittal and coronal reconstructions (images performed HISTORY: CONFUSION altered mental status COMPARISON without contrast: Previous CT head 11/11 and 10/17/2016 FINDINGS: No acute intracranial findings. No hemorrhage. No significant change since previous study. Again note area of stable low density at the anterior right basal ganglia extending to the anterior margin of head of the caudate. This reflects a lacunar infarct previously mentioned. No new findings evident today. Chronic small vessel deep white matter ischemic changes seen elsewhere throughout the cerebral hemispheres bilateral. No mass effect or mass lesion. No subdural nor extra-axial collection. Ventricles & basal cisterns appear stable. Anterior horn right lateral ventricle more generous than the left reflecting atrophy.. . Diffuse cerebral atrophy similar to previous studies. The posterior fossa appear satisfactory and unremarkable. The skull is intact. The visualized portions of the paranasal sinuses are clear. Mastoid air cells, middle ear & IACs are unremarkable. IMPRESSION: No acute intracranial findings. No change since 11/30/2016 CT head, nor September 2016 CT head Chronic small vessel deep white matter ischemic changes again noted. Stable small Old lacunar infarct anterior right basal ganglia. Unchanged Diffuse cerebral atrophy .
--- NOTE | 2016-12-04 09:05 | HISTORY AND PHYSICAL REPORT ---
Demographics: Admit date: 12/03/16 Chief complaint: change in mental status PRIMARY DIAGNOSIS: DKA Allergies: Coded Allergies: No Known Allergies (11/07/16) History of present illness: History of present illness: this wf who was found with acute mental status changes at home and was seen in the ed with dka and possible infection and was admitted with ivf and insulin - pt with recent fall with nasal fx and has falls Past medical history: Family HX Family Hx Insignificant Yes Immunization HX DT/Tetanus Unknown Flu Refused Pneumonia Received In Past TB Test in last year No General CAD? No Angina: Yes MA: Yes Hypertension? Yes Hyperlipidemia? Yes CHF? Yes DVT? No PE? Yes COPD? No Asthma? No Anemia? No GERD? No Gastric ulcers? No GI Bleed? No Hernia? No Thyroid Problems? No Hypothyroidism? No CVA? No Seizures? No Diabetes? Yes Insulin Dependent: Yes Insulin Pump: No Home FSBS? Yes Renal Insuffiency? No UTI? Yes Stones? No BPH? No GB Disease: No Nephritic Syndrome? No Asplenia? No Hepatitis? Yes Sickle Cell Disease? No Arthritis? Yes Migraines? No Cataracts? Yes Glaucoma? No MRSA? No HIV? No TB? No Anxiety? Yes Depression? Yes Cancer? No More? Yes Additional hx: OSTEOARTHRITIS Past Surgical HX Previous Surgery?Y TUBAL CARDIAC STENTS CARDIAC CATH 06/12 Current home meds: Reported Medications WARFARIN SOD (Coumadin) 2 MG PO SuTuWeThSa WARFARIN SOD (Coumadin) 3 MG PO MoFr Omeprazole (Omeprazole 40MG) 40 MG PO DAILY INSUL REG 30%ISOPHAN 70% HUMAN (Humulin 70-30 Vial) 30 UNITS SC QAM INSUL REG 30%ISOPHAN 70% HUMAN (Humulin 70-30 Vial) 20 UNITS SC QPM Furosemide 40 MG PO BID #60 TAB Isosorbide Mononitrate (Isosorbide Mononitrate ER) 30 MG PO DAILY Buspirone Hcl 15 MG PO TID #90 LISINOPRIL (Lisinopril) 20 MG PO DAILY Clopidogrel Bisulfate (Plavix) 75 MG PO DAILY Spironolactone (Spironolactone) 25 MG NG BID Glipizide 10 MG PO TID Atorvastatin Calcium (Atorvastatin) 80 MG PO DAILY Aspirin (Aspirin EC 81MG Tab) 81 MG PO DAILY HYDROCODONE/ACETAMINOPHEN (Hydrocodon-Acetaminophn 10-325) 1 TAB PO TID #90 HYDROCODONE/ACETAMINOPHEN ([place] 10-325 Tablet) 1 TAB PO TID NITROGLYCERIN (Nitrostat) 0.4 MG SL PRN PRN CHEST PAIN Bupropion Hcl (Bupropion 75MG) 75 MG PO DAILY Social Hx: Smoking HX Tobacco No Packs/day N/A Alcohol Alcohol: No Hx of Drug Use Drug Use? No Patien't marital status is Patient's support system is fair Review of systems: Constitutional see HPI, weakness. No: fever. Eyes No: drainage. Ears, Nose, Mouth, Throat No ear discharge, No epistaxis, No throat pain Respiratory No: cough, shortness of breath, wheezing. Cardiovascular No chest pain, No syncope Gastrointestinal/Abdominal No constipated, No vomiting Genitourinary No: dysuria. Musculoskeletal No: back pain, joint pain. Skin No: rash. Neurological No: seizure disorder. Psychiatric No: no symptoms reported. Exam: Lab data for last 24 hours: Laboratory Tests 12/04/16 0632: POC Glucose 181 H 12/04/16 0510: POC Glucose 147 H 12/04/16 0435: Sodium 138, Potassium 4.0, Chloride 99, Carbon Dioxide 29, BUN 32 H, Creatinine 1.5 H, Estimated Creat Clear 50, Estimated GFR (MDRD) 35 L, Glucose 168 H, Calcium 9.8, Magnesium 1.9, Acetone Level NONE DETECTED 12/04/16 0426: POC Glucose 155 H 12/04/16 0332: POC Glucose 174 H 12/04/16 0224: POC Glucose 208 H 12/04/16 0128: POC Glucose 187 H 12/04/16 0117: ABG pH 7.41, ABG pCO2 (Temp Corrct 37.5, ABG pO2 (Temp Correct 76.3 L, ABG HCO3 23.1, ABG Total CO2 24.3, ABG O2 Sat (Calculated) 94.2, ABG Base Excess -1.5, Jesús Test Y, Blood Gas Comments R/R 12/04/16 0006: POC Glucose 219 H 12/03/16 2302: POC Glucose 214 H 12/03/16 2212: POC Glucose 229 H 12/03/162111: POC Glucose 273 H 12/03/162034: Sodium 135 L, Potassium 4.0, Chloride 94 L, Carbon Dioxide 21 L, BUN 35 H, Creatinine 1.7 H, Estimated Creat Clear 44 L, Estimated GFR (MDRD) 30 L, Glucose 241 H, Calcium 9.7 12/03/16 2009: POC Glucose 319 *H 12/03/16 1903: POC Glucose 417 *H 12/03/16 1655: Magnesium 2.2 12/03/16 1655: Sodium 134 L, Potassium 4.5, Chloride 93 L, Carbon Dioxide 19 L, BUN 37 H, Creatinine 1.9 H, Estimated Creat Clear 40 L, Estimated GFR (MDRD) 27 L, Glucose 400 H, Calcium 10.0 12/03/16 165: Amylase 24 L, Lipase 85, Acetone Level MODERATE 12/03/16 1639: POC Glucose 412 *H 12/03/16 1605: POC Glucose 437 *H 12/03/16 1525: POC Glucose 457 *H 12/03/16 1512: Urine Color YELLOW, Urine Appearance Sl Cloudy, Urine pH 5.0, Ur Specific [place] 1.015, Urine Protein TRACE H, Urine Ketones 4+, Urine Blood TRACE H, Urine Nitrate NEGATIVE, Urine Bilirubin 3+ H, Urine Urobilinogen 0.2, Ur Leukocyte Esterase NEGATIVE, Urine RBC OCC, Urine WBC 10-20, Ur Squamous Epith Cells 10-20, Urine Bacteria 4+, Urine Glucose 4+ H 12/03/16 1500: ABG pH 7.33 L, ABG pCO2 (Temp Corrct 26.6 L, ABG pO2 (Temp Correct 106.6 H, ABG HCO3 13.6 L, ABG Total CO2 14.4 L, ABG O2 Sat (Calculated) 97.7, ABG Base Excess -12.6 L, Jesús Test ACCEPTABLE, Blood Gas Comments RIGHT RADIAL 12/03/16 1400: Lactic Acid 1.8 12/03/16 1400: Sodium 132 L, Potassium 5.0, Chloride 91 L, Carbon Dioxide 17 L, BUN 37 H, Creatinine 1.9 H, Estimated Creat Clear 40 L, Estimated GFR (MDRD) 27 L, Glucose , Calcium 10.3 H, Total Bilirubin 1.2 H, AST 30, ALT 22, Alkaline Phosphatase 338 H, Creatine Kinase 149, Total Protein 8.8 H, Albumin 2.7 L, Globulin 6.1 H, Albumin/Globulin Ratio 0.4 L, PT 24.9 H, INR 2.33 H, APTT 28.5, WBC 9.6, RBC 3.74 L, Hgb 11.2 L, Hct 37.5, MCV 100.5 H, RDW 15.1, Plt Count 280, MPV 8.4, Gran % 79.1, Gran # 7.6, Lymphocytes % 12.4, Monocytes % 7.7 , Eosinophils % 0.3, Basophils % 0.5, Lymphocytes # 1.2, Monocytes # 0.7, Eosinophils # 0.0, Basophils # 0.1, PUBS MCHC 29.8 L, MCH 30.0 Microbiology 12/03 163 BLOOD: Anaerobic Blood Culture - CAN Cancelled: DUPLICATES, CANCEL PER 12/03 163 BLOOD: Aerobic Blood Culture - CAN Cancelled: DUPLICATES, CANCEL PER 12/03 163 BLOOD: Anaerobic Blood Culture - CAN Cancelled: DUPLICATES, CANCEL PER 12/03 163 BLOOD: Aerobic Blood Culture - CAN Cancelled: DUPLICATES, CANCEL PER 12/03 1515 BLOOD: Anaerobic Blood Culture - RECD 12/03 1515 BLOOD: Aerobic Blood Culture - RECD 12/03 1512 URINE CC: Urine Culture - RECD 12/03 1400 BLOOD: Anaerobic Blood Culture - RECD 12/03 1400 BLOOD: Aerobic Blood Culture - RECD Admission vital signs: 1ST Vital Signs Result Date Time Pulse Ox 99 12/03 1305 B/P 126/80 12/03 1305 Temp 98.1 12/03 1305 Pulse 117 12/03 1305 Resp 16 12/03 1305 O2 Delivery OXYGEN 12/03 1733 O2 Flow Rate 2 12/03 1733 Exam General appearance: alert Eyes: PERRLA, periorbital bruising ENT: dry mucous membranes Neck: no JVD Cardiovascular: regular rate & rhythm Respiratory: no respiratory distress ABD: soft Genitourinary: no hematuria Extremities: moves all Musculoskeletal: equal muscle strength Skin: intact Neuro: alert, boom man II-XII nml as tested Additional information: pt with dka and will check abn cxr Plan: Problem List 1. Diabetic ketoacidosis Plan: will use dka protocol at 0906
--- NOTE | 2016-12-04 15:39 | RADIOLOGY REPORT PS360 ---
CT CHEST W/O CONTRAST Ordering Physician: Johnny Waters MD Patient Age: 66 years: Female HISTORY: ABNORMAL CXR COUGHsignificant increased density progressive infiltrate density filling right apex on this study change since yesterday evening infiltrate pneumonic infiltrate right apex since since yesterday's study. TECHNIQUE: Axial Helical CT scanning performed the chest with no IV contrast Sagittal and coronal reconstruction CT workstation FINDINGS . Prominent progression infiltrate density right apex since yesterday's PCXR reflecting developing lobar pneumonia here. This progression nicely appreciated on the CT supervisor assembly stock view. . Focal area of consolidation/infiltrate density right apical region measuring up to over 5 cm AP X 4 cm, & nearly 3 cm height. Could not exclude some very early cavitary features here more likely underlying bleb.- Warrants close follow-up. -This is the most prominent feature on today's study & its rapid development since recent chest filmssupports pneumonia rather than underlying lesion. There are diffuse scattered small areas of infiltrative density throughout the periphery the lung [place] bilaterally- quite numerous. . Some almost nodular character. some areas slight tree-in-bud type appearance..Centrilobar distribution of these small clustered areas peripheral infiltrate At the medial left apex is a more focal area of measuring up to 2.5 cm AP and height x 1.5 cm transverse.. Other areas of infiltrate at the periphery of the left upper lobe superiorly Leaking over the patient's film cc and have been somewhat migratory infiltrates patient warrants of central pulmonary workup and may need to exclude BOOp/ MASTIC WORKER Mediastinum. Prominent pulmonary artery suggestive of underlying pulmonary hypertension. Aorta normal caliber. Suspect patient may be anemic. Heart. Prominent coronary artery calcification and likely coronary artery stents. No pericardial effusion. Mild cardiomegaly. Elevation right hemidiaphragm. Enlarged left lobe thyroid with large 3 cm x 2 cm nodule left lobe. Recommend thyroid ultrasound Uppermost abdomen. Limited imaging here-but Gallstones noted. Fluid-filled moderately distended stomach. IMPRESSION: 1. Significant progression of the consolidation,/ infiltrate at right apex since yesterday.. Most notable focal infiltrate here 2. Otherwise Numerous small areas inflammatory foci scattered small areas of infiltrate throughout theperiphery the lung cortez bilaterally. This includes some tree-in-bud features as well as & slight peripheral reticulonodular appearance some areas peripherally.. Mild interstitial coarsening and prominence also noted suggest pulmonary consult Also Suggest correlation with BNP. Cardiomegaly but No pleural effusion. 3.. Prominent pulmonary arteries may reflect underlying pulmonary hypertension. 4.*Enlarged left lobe thyroid with large 3 cm x 2 cm nodule/mass left lobe. Recommend thyroid ultrasound 5.. Incidental Cholelithiasis.
[2016-12-05] VITALS (22 sets, daily range): BP systolic 67–142; BP diastolic 39–73
[2016-12-05 12:32] LABS: ARTERIAL ABE -1.3 MMOL/L (-2.4-+2.3); ARTERIAL PO2 52.1 MMHG (80-100); ARTERIAL TCO2 25.3 MMOL/L (23-27)
[2016-12-05 12:41] LABS: HEMOGLOBIN 10.4 g/dL (12.2-16.2); LYMPH # 1.2 K/mm3 (0.7-4.5); LYMPH % 10.3 % (10-50.0)
--- NOTE | 2016-12-05 12:49 | RADIOLOGY REPORT PS360 ---
CHEST-PORTABLE COMPARISON: AP upright chest 12/03/[address] scan the chest 12/04/2016 HISTORY: Follow-up pneumonia TECHNIQUE: Portable upright chest FINDINGS: There is a very poor inspiration. Ill-defined opacity is seen in the right apex and there are somewhat coarse and nodular opacities in the right suprahilar region. Patient has a known diffuse right upper lobe pneumonia seen on the CT scan. The right lung base is not adequately evaluated due to the poor inspiration. The left lung field is grossly clear. Cardiac size is likely normal considering the poor inspiration. IMPRESSION: Very poor excretion making evaluation difficult but appears be persistent right apical right upper lobe pneumonia and/or pleural scarring. Consider a PA and lateral chest to the patient is able to come to the radiology Department for better overall evaluation
[2016-12-05 13:07] LABS: BUN 41 mg/dL (7-18)
--- NOTE | 2016-12-05 13:08 | ACUTE CARE PROGRESS NOTE (QUA) ---
Progress Notes Subjective Date 12/05/16 Time 1301 Note saw pt at noon and 830 am today Patient/family reports: feeling worse Nursing reports: shortness of breath Objective Findings Last VS-Temp:98.4 B/P:103/57 Pulse:104 Resp:20 SaO2:92 OXYGEN Last weight lbs:195 oz:1 K.479 Method:Bed Scales Exam General appearance: awake Eyes: anicteric, PERRLA ENT: dry mucous membranes Neck: no JVD Cardiovascular: regular rate & rhythm, gallop Respiratory: no respiratory distress, diminished breath sounds ABD: soft Genitourinary: no hematuria Extremities: moves all Musculoskeletal: equal muscle strength Skin: dry Neuro: no focal changes but confused at times and slow mentation Reviewed: allergies, medications, vital signs, lab results, radiology report Assessment/Plan Problem List 1. Diabetic ketoacidosis 2. Renal insufficiency 3. CAP (community acquired pneumonia) 4. UTI (urinary tract infection) Patient condition Guarded Plan: continue current care This inpt stay is expected to cross 2 MNs from start of care Yes Antibiotic Stewardship (2) Current Culture Results Microbiology 12/05 1230 BLOOD: Anaerobic Blood Culture - RECD 12/05 1230 BLOOD: Aerobic Blood Culture - RECD 12/03 1512 URINE CC: Urine Culture - RES STREPTOCOCCUS AGALACTIAE (B) Infxn that will respond? Yes Right drug,dose,and route? Yes More targeted antbx? Yes How long atbx needed? 7 at 1308
[2016-12-05 13:20] LABS: GFR (ESTIMATED) 27 ML/MIN (59-)
[2016-12-05 13:29] LABS: URINE BLOOD NEGATIVE (NEG)
[2016-12-05 13:45] LABS: URINE BILIRUBIN - DIPSTICK 2+ (NEG)
[2016-12-06] VITALS (9 sets, daily range): BP systolic 105–136; BP diastolic 57–82
--- NOTE | 2016-12-06 09:24 | ACUTE CARE PROGRESS NOTE (QUA) ---
Progress Notes Subjective Date 12/06/16 Time 09 Note doing better Patient/family reports: feeling better Nursing reports: alert Objective Findings Last VS-Temp:97.6 B/P:142/76 Pulse:114 Resp:20 SaO2:93 OXYGEN Last weight lbs:210 oz:2 K.311 Method:Bed Scales Exam General appearance: alert Eyes: PERRLA ENT: dry mucous membranes Neck: no JVD Cardiovascular: regular rate & rhythm Respiratory: no respiratory distress ABD: soft Genitourinary: catheter in place Extremities: moves all Musculoskeletal: equal muscle strength Skin: dry Neuro: alert, pnp II-XII nml as tested Reviewed: allergies, medications, vital signs, lab results Assessment/Plan Problem List 1. Diabetic ketoacidosis 2. Renal insufficiency 3. CAP (community acquired pneumonia) 4. UTI (urinary tract infection) Patient condition Improving Plan: continue current care This inpt stay is expected to cross 2 MNs from start of care Yes Comments: will check into rehab Antibiotic Stewardship (2) Infxn that will respond? Yes Right drug,dose,and route? Yes More targeted antbx? Yes at 0666
--- NOTE | 2016-12-06 09:24 | ACUTE CARE PROGRESS NOTE (QUA) ---
Progress Notes Subjective Date 12/06/16 Time 09 Note doing better Patient/family reports: feeling better Nursing reports: alert Objective Findings Last VS-Temp:97.6 B/P:142/76 Pulse:114 Resp:20 SaO2:93 OXYGEN Last weight lbs:210 oz:2 K.311 Method:Bed Scales Exam General appearance: alert Eyes: PERRLA ENT: dry mucous membranes Neck: no JVD Cardiovascular: regular rate & rhythm Respiratory: no respiratory distress ABD: soft Genitourinary: catheter in place Extremities: moves all Musculoskeletal: equal muscle strength Skin: dry Neuro: alert, hoist mechanic II-XII nml as tested Reviewed: allergies, medications, vital signs, lab results Assessment/Plan Problem List 1. Diabetic ketoacidosis 2. Renal insufficiency 3. CAP (community acquired pneumonia) 4. UTI (urinary tract infection) Patient condition Improving Plan: continue current care This inpt stay is expected to cross 2 MNs from start of care Yes Comments: will check into rehab Antibiotic Stewardship (2) Infxn that will respond? Yes Right drug,dose,and route? Yes More targeted antbx? Yes at 0602
[2016-12-07] VITALS (8 sets, daily range): BP systolic 103–156; BP diastolic 59–76
--- NOTE | 2016-12-07 07:48 | ACUTE CARE PROGRESS NOTE (QUA) ---
Progress Notes Subjective Date 12/07/16 Time 0744 Note doing better Patient/family reports: feeling better Nursing reports: shortness of breath Objective Findings Last VS-Temp:97.6 B/P:142/76 Pulse:114 Resp:20 SaO2:93 OXYGEN Last weight lbs:210 oz:2 K.311 Method:Bed Scales Exam General appearance: alert Eyes: anicteric, PERRLA ENT: dry mucous membranes Neck: no JVD Cardiovascular: tachycardia Respiratory: basilar rales ABD: soft Genitourinary: no hematuria Extremities: moves all Musculoskeletal: equal muscle strength Skin: dry Neuro: alert, transit operator II-XII nml as tested Reviewed: allergies, medications, vital signs, lab results Assessment/Plan Problem List 1. Diabetic ketoacidosis 2. Renal insufficiency 3. CAP (community acquired pneumonia) 4. UTI (urinary tract infection) Patient condition Stable Plan: make medication changes This inpt stay is expected to cross 2 MNs from start of care Yes Comments: will d/c ivf and give lasix as she is sl ahead with fluids plus wt up Antibiotic Stewardship (2) Current Culture Results Microbiology 12/05 1230 BLOOD: Anaerobic Blood Culture - RECD 12/05 1230 BLOOD: Aerobic Blood Culture - RECD 12/03 1512 URINE CC: Urine Culture - COMP STREPTOCOCCUS AGALACTIAE (B) Infxn that will respond? Yes Right drug,dose,and route? Yes More targeted antbx? Yes at 0747
[2016-12-07 08:11] LABS: HEMOGLOBIN 11.4 g/dL (12.2-16.2); LYMPH % 9.2 % (10-50.0)
--- NOTE | 2016-12-07 12:11 | RADIOLOGY REPORT PS360 ---
CHEST-PORTABLE COMPARISON: Portable upright chest 12/05/2016 HISTORY: Chest pain TECHNIQUE: Portable spine chest FINDINGS: The patient is markedly obese and this is a poor inspiration making evaluation difficult. There is diffuse opacity in right apex in this lady with known right upper lobe pneumonia and there probably has been interval progression from the previous chest film with more diffuse opacity in the right apex at this time. The left lung field remains grossly clear though there is crowding the vascular markings due to the poor inspiration. Cardiac size is borderline. IMPRESSION: Poor inspiratory effort compounded by the patient's large size making evaluation suboptimal. It would be helpful and upright PA chest to the patient is able to sustain the position for better evaluation
[2016-12-08 04:28] VITALS: BP 121/76
[2016-12-08 08:11] VITALS: BP 129/71
[2016-12-08 09:36] VITALS: BP 129/71
[2016-12-08 11:55] VITALS: BP 116/60
--- NOTE | 2016-12-08 12:04 | ACUTE CARE PROGRESS NOTE (QUA) ---
Progress Notes Subjective Date 12/08/16 Time 1202 Note doing better Patient/family reports: feeling better Nursing reports: no complaints Objective Findings Last VS-Temp:98.3 B/P:116/60 Pulse:113 Resp:16 SaO2:85 OXYGEN Last weight lbs:211 oz:0 K.708 Method:Bed Scales Exam General appearance: awake Eyes: PERRLA ENT: dry mucous membranes Neck: no JVD Cardiovascular: regular rate & rhythm Respiratory: no respiratory distress ABD: soft Genitourinary: no hematuria Extremities: moves all Musculoskeletal: equal muscle strength Skin: dry Neuro: alert, wool presser II-XII nml as tested Reviewed: allergies, medications, vital signs, lab results Assessment/Plan Problem List 1. Diabetic ketoacidosis 2. Renal insufficiency 3. CAP (community acquired pneumonia) 4. UTI (urinary tract infection) Patient condition Improving Plan: initiate discharge plan This inpt stay is expected to cross 2 MNs from start of care Yes Comments: doing better using bathroom this am Antibiotic Stewardship (2) Infxn that will respond? Yes Right drug,dose,and route? Yes More targeted antbx? Yes at 1204
--- NOTE | 2016-12-08 12:04 | ACUTE CARE PROGRESS NOTE (QUA) ---
Progress Notes Subjective Date 12/08/16 Time 1202 Note doing better Patient/family reports: feeling better Nursing reports: no complaints Objective Findings Last VS-Temp:98.3 B/P:116/60 Pulse:113 Resp:16 SaO2:85 OXYGEN Last weight lbs:211 oz:0 K.708 Method:Bed Scales Exam General appearance: awake Eyes: PERRLA ENT: dry mucous membranes Neck: no JVD Cardiovascular: regular rate & rhythm Respiratory: no respiratory distress ABD: soft Genitourinary: no hematuria Extremities: moves all Musculoskeletal: equal muscle strength Skin: dry Neuro: alert, staffing branch manager II-XII nml as tested Reviewed: allergies, medications, vital signs, lab results Assessment/Plan Problem List 1. Diabetic ketoacidosis 2. Renal insufficiency 3. CAP (community acquired pneumonia) 4. UTI (urinary tract infection) Patient condition Improving Plan: initiate discharge plan This inpt stay is expected to cross 2 MNs from start of care Yes Comments: doing better using bathroom this am Antibiotic Stewardship (2) Infxn that will respond? Yes Right drug,dose,and route? Yes More targeted antbx? Yes at 1204
[2016-12-08] MEDS ORDERED: KEFLEX 500MG.500 MG PO (12:07)
--- NOTE | 2016-12-08 12:10 | DISCHARGE SUMMARY STANDARD ---
Demographics Admit date: 12/03/16 Discharge date: 12/08/16 History of present illness History of present illness this wf who was found with acute mental status changes at home and was seen in the ed with dka and possible infection and was admitted with ivf and insulin - pt with recent fall with nasal fx and has falls Hospital Course Hospital Course: pt with multiple issues which include confusion and dka with uti and cap - she slowly improved off pain meds and after review no coumadin indicated and not safe sec to falls - she has recurrent uti and cap which will need to be followed and pt eval and will finish abx Discharge diagnoses Problem List 1. Diabetic ketoacidosis 2. Renal insufficiency 3. CAP (community acquired pneumonia) 4. UTI (urinary tract infection) Medications Medications: Discharge meds are as noted. Follow up Follow up in office in: 2 WEEKS with: Johnny Waters MD Comment: will see pcp at [facility] at 1210
--- NOTE | 2016-12-08 12:10 | DISCHARGE SUMMARY STANDARD ---
Demographics Admit date: 12/03/16 Discharge date: 12/08/16 History of present illness History of present illness this wf who was found with acute mental status changes at home and was seen in the ed with dka and possible infection and was admitted with ivf and insulin - pt with recent fall with nasal fx and has falls Hospital Course Hospital Course: pt with multiple issues which include confusion and dka with uti and cap - she slowly improved off pain meds and after review no coumadin indicated and not safe sec to falls - she has recurrent uti and cap which will need to be followed and pt eval and will finish abx Discharge diagnoses Problem List 1. Diabetic ketoacidosis 2. Renal insufficiency 3. CAP (community acquired pneumonia) 4. UTI (urinary tract infection) Medications Medications: Discharge meds are as noted. Follow up Follow up in office in: 2 WEEKS with: Johnny Waters MD Comment: will see pcp at [facility] at [id number]
[2016-12-08 12:11] VITALS: BP 116/60
== END 2016-12-08 13:45 | DRG 637 ==
LOC: ER 13:02 → 2ND 15:58
PROVIDERS: Emergency Medicine; General Practice
DX: E13.10 Other specified diabetes mellitus with ketoacidosis without coma (principal); J18.9 Pneumonia, unspecified organism; N39.0 Urinary tract infection, site not specified; Z91.81 History of falling; B95.4 Other streptococcus as the cause of diseases classified elsewhere; S02.2XXA Fracture of nasal bones, initial encounter for closed fracture
CPT/HCPCS: J0456